=== PATIENT | female | born 1985 | race Caucasian/White ===

== ENCOUNTER → 2018-03-13 21:21 | Outpatient (CLI) | payer OTHER, SELFPAY ==
[2018-03-13 21:57] LABS: Thyroid Stim Hormone (TSH) 4.46 uIU/mL (0.358-3.74)
== END ==
PROVIDERS: Visit Provider Nurse Practitioner
DX: E03.9 Hypothyroidism, unspecified (principal)
CPT/HCPCS: 84443

== ENCOUNTER → 2018-03-15 15:18 | Outpatient (CLI) | payer OTHER, SELFPAY | PROVIDERS: Visit Provider Nurse Practitioner | DX: E03.9 Hypothyroidism, unspecified (principal) ==

== ENCOUNTER → 2018-04-04 21:12 | Outpatient (CLI) | payer OTHER, SELFPAY ==
[2018-04-04 21:19] LABS: Absolute Lymphocyte Count 3.67 X10^3/ul (0.83-4.51); Absolute Neutrophil Count 7.3 X10^3/uL (2.0-7.7); Basophil# 0.05 X10^3/uL; Basophil% 0.4 % (0-1); Eosinophil# 0.13 X10^3/uL; Eosinophils% 1.1 % (0-5); Hematocrit 43.3 % (37-47); Lymphocyte # 3.67 X10^3/ul (4.0); Lymphocyte % 30.1 % (19-41); Mean Corp Hgb Conc 34.6 g/gl (32-36); Mean Corpuscular Hgb 31.3 pg (27.0-32.0); Mean Corpuscular Volume 90.4 fL (81-99); Mean Platelet Vol. 10.7 fl (6.2-12.0); Monocyte% 8.2 % (0-10); Neutrophil # 7.34 X10^3/uL (2.7-7.7); POSITIVE COUNT NO; POSITIVE DIFFERENTIAL NO; POSITIVE MORPHOLOGY NO; Platelet Count 265 K/mm3 (150-450); RBC Distribution Width CV 12.4 % (11.6-14.6); Red Blood Count 4.79 M/mm3 (4.2-5.4); White Blood Count 12.2 K/mm3 (4.4-11.0)
[2018-04-04 21:25] LABS: Erythrocyte Sedimentation Rate 10 mm/hr (0-20)
[2018-04-04 21:38] LABS: ALB/GLOB Ratio 0.9 RATIO (0.9-2.4); AST(SGOT) 14 U/L (15-37); Alanine Aminotransfer ALT/SGPT 37 U/L (13-56); Alkaline Phosphatase 94 U/L (45-117); Anion Gap 8 (5-15); BUN 11 mg/dL (7-18); CPK Total, Creatine Kinase 77 U/L (26-192); Calcium,Total 9.1 mg/dL (8.5-10.1); Chloride 103 mmol/L (98-107); Creatinine, Serum 0.73 mg/dL (0.55-1.02); EST Glomerular Filtration Rate 98 mL/min (>60); Est Glom Filt Rate - Afr Amer 119 mL/min (>60); Globulin 4.3 g/dL (2.2-4.2); Glucose 87 mg/dL (74-106); Potassium 3.5 mmol/L (3.5-5.1); Protein, Total 8.3 g/dL (6.4-8.2); Rheumatoid Factor < 10.0 IU/mL (<15); Sodium Level 141 mmol/L (136-145); T4 Free Direct 1.03 ng/dL (0.76-1.46); Thyroid Stim Hormone (TSH) 2.39 uIU/mL (0.358-3.74); Vitamin B12 750 pg/mL (211-911)
[2018-04-08 16:17] LABS: Aldolase 4.7 U/L (3.3-10.3)
[2018-04-09 09:01] LABS: ANTINUCLEAR ANTIBODIES DIRECT Negative (Negative)
== END ==
PROVIDERS: Referring Provider Nurse Practitioner; Visit Provider Nurse Practitioner
DX: E03.9 Hypothyroidism, unspecified (principal); M62.81 Muscle weakness (generalized)
CPT/HCPCS: 80053; 82085; 82550; 82607; 84439; 84443; 85025; 85652; 86038; 86225; 86235; 86431

== ENCOUNTER → 2018-04-08 21:53 | Outpatient (CLI) | payer OTHER, SELFPAY ==
[2018-04-11 20:07] LABS: Lyme IgG P18 Ab Absent (.); Lyme IgG P23 Ab Absent (.); Lyme IgG P28 Ab Absent (.); Lyme IgG P30 Ab Absent (.); Lyme IgG P39 Ab Absent (.); Lyme IgG P41 Ab Present (.); Lyme IgG P45 Ab Absent (.); Lyme IgG P58 Ab Absent (.); Lyme IgG P66 Ab Absent (.); Lyme IgG P93 Ab Absent (.); Lyme IgM P23 Ab Absent (.); Lyme IgM P39 Ab Absent (.); Lyme IgM P41 Ab Absent (.)
[2018-04-12 08:35] LABS: CMV Antibody IgG < 0.60 U/mL (0.00-0.59); EBV Acute VCA IgM < 36.0 U/mL (0.0-35.9); EBV Early Antigen IgG 17.1 U/mL (0.0-8.9); Lyme IgG WB Interpretation Negative (.); Lyme IgM WB Interpretation Negative (.); PARVOVIRUS B19 IGG 4.2 index (0.0-0.8); PARVOVIRUS B19 IGM 0.4 index (0.0-0.8)
== END ==
PROVIDERS: Referring Provider Nurse Practitioner; Visit Provider Nurse Practitioner
DX: A69.20 Lyme disease, unspecified (principal); G70.00 Myasthenia gravis without (acute) exacerbation; B25.9 Cytomegaloviral disease, unspecified; C85.93 Non-Hodgkin lymphoma, unspecified, intra-abdominal lymph nodes
CPT/HCPCS: 86617; 86644; 86663; 86664; 86665; 86747

== ENCOUNTER → 2018-04-29 07:53 | Outpatient (CLI) | payer OTHER, SELFPAY | PROVIDERS: Referring Provider Nurse Practitioner; Visit Provider Nurse Practitioner | DX: E03.9 Hypothyroidism, unspecified (principal) | CPT/HCPCS: 84443 ==

== ENCOUNTER → 2018-05-10 20:53 | Outpatient (CLI) | payer OTHER, SELFPAY ==
[2018-05-10 17:38] VITALS: BMI 26.2
== END ==
PROVIDERS: Referring Provider Nurse Practitioner; Visit Provider Nurse Practitioner
DX: R33.9 Retention of urine, unspecified (principal)
CPT/HCPCS: 87086; 87088

== ENCOUNTER → 2018-06-11 07:28 | Outpatient (CLI) | payer OTHER, SELFPAY ==
[2018-05-29 09:52] VITALS: BMI 25.7
--- NOTE | 2018-06-11 07:32 | ECHOD_ITS ---
Reason For Study: ARRHYTHMIA Procedure This was a 2D Doppler, Color Flow transthoracic echocardiogram. Exam performed in department. Left Ventricle Normal LV size. Left ventricular systolic function is normal. The estimated ejection fraction is 60 %. No evidence for diastolic dysfunction. No regional wall motion abnormalities noted. Right Ventricle Normal RV size. Normal systolic function. Atria Normal left atrium. Normal right atrium. Mitral Valve Normal mitral valve. Mild (1+) eccentric mitral valve insufficiency. Tricuspid Valve Normal tricuspid valve. Mild tricuspid valve insufficiency. Aortic Valve Normal aortic valve. Trisinus/trileaflet aortic valve. Pulmonic Valve Normal pulmonic valve. Great Vessels Normal aortic root. The pulmonary artery is normal size. Normal inferior vena cava. Pericardium/Pleural No pericardial effusion. MMode/2D Measurements & Calculations LVIDd: 5.4 cm IVSd: 0.86 cm Ao root diam: 2.8 cm LVIDs: 3.8 cm LVPWd: 0.91 cm RVDd: 3.4 cm FS: 30.7 % LAV(MOD-bp): 44.3 ml LVAd ap4: 30.2 cm2 SV(MOD-sp4): 56.3 ml LAV(MOD-bp) Indexed: 23.0 ml/m2 EDV(MOD-sp4): 93.9 ml LAV(MOD-sp2): 35.1 ml EDV(sp4-el): 99.0 ml LAV(MOD-sp4): 52.5 ml LVAs ap4: 17.1 cm2 ESV(MOD-sp4): 37.6 ml ESV(sp4-el): 38.3 ml EF(MOD-sp4): 60.0 % EF(sp4-el): 61.3 % SV(sp4-el): 60.7 ml LA A4 area: 18.8 cm2 LA dimension(2D): 3.7 cm RA A4 area: 16.7 cm2 Time Measurements MV dec time: 0.31 sec Doppler Measurements & Calculations MV E max josué: 58.6 cm/sec Lat Peak E' Josué: 15.7 cm/sec Med Peak E' Josué: 11.2 cm/sec MV A max josué: 47.0 cm/sec E/E' lat: 3.7 E/E' med: 5.2 MV E/A: 1.2 Ao V2 max: 120.6 cm/sec LV V1 max: 89.3 cm/sec PA V2 max: 94.0 cm/sec Ao max P.8 mmHg LV V1 max P.2 mmHg PI end-d josué: 106.1 cm/sec TR max josué: 211.7 cm/sec TR max P.9 mmHg Interpretation Summary Normal LV size. Left ventricular systolic function is normal. The estimated ejection fraction is 60 %. No evidence for diastolic dysfunction. Mild tricuspid valve insufficiency. Ordering Physician: Gutierrez Cornejo Referring Physician: Gutierrez Cornejo Performed By: Vandana Kruger, PAULIECS, RVT
--- OUTSIDE RECORDS SUMMARY | 2018-09-12 12:33 | XMS RPT_ITS ---
:1985 Author Organization OHIP Support Name Relationship Address Phone LATA EDWARDS Unavailable [address] + [place] [address] [employer] Unavailable [address] + [place] [address] LATA EDWARDS Unavailable [address] + [place] [address] [employer] Unavailable [address] + [place] [address] LATA EDWARDS Unavailable [address] + [place] [address] [employer] Unavailable [address] + [place] [address] LATA EDWARDS Unavailable [address] + [place] [address] [employer] Unavailable [address] + [place] [address] JERRYRACHEL Unavailable . + ., . . UE Unavailable Unavailable Unavailable UE Unavailable Unavailable Unavailable UE Unavailable Unavailable Unavailable UE Unavailable Unavailable Unavailable UE Unavailable Unavailable Unavailable LATA LOOMIS Unavailable [address] [phone] [place] [address] UE Unavailable Unavailable Unavailable UE Unavailable Unavailable Unavailable Lisa Lerner Unavailable Unavailable + Care Team Providers Name Role Phone Gutierrez Cornejo Attending Unavailable Jass Cornejoril Referring Unavailable My Frank TRACK HELPER-C Primary Care Unavailable Gutierrez Cornejo Attending Unavailable Jass Cornejoril Referring Unavailable Frank, My TRACK HELPER-C Primary Care Unavailable Chantal, Gutierrez Consulting Unavailable Donna Martino Attending Unavailable Frank, My TRACK HELPER-C Referring Unavailable Chantal, Gutierrez Attending Unavailable Chantal, Gutierrez Referring Unavailable Frank, My TRACK HELPER-C Attending Unavailable Frank, My TRACK HELPER-C Referring Unavailable Frank, My TRACK HELPER-C Attending Unavailable Frank, My TRACK HELPER-C Referring Unavailable Frank, My TRACK HELPER-C Attending Unavailable Frank, My TRACK HELPER-C Referring Unavailable Frank, My TRACK HELPER-C Attending Unavailable Frank, My TRACK HELPER-C Referring Unavailable Frank, My TRACK HELPER-C Attending Unavailable Frank, My TRACK HELPER-C Referring Unavailable Frank, My TRACK HELPER-C Attending Unavailable Frank, My TRACK HELPER-C Referring Unavailable Chantal, [place] Attending Unavailable FARIBA GARDUNO Attending Unavailable IMER TARIQ Attending Unavailable SANGITA LERNER Referring Unavailable BK, TOSHIA Y Referring Unavailable Frank, My Attending Unavailable PROVIDER, UNKNOWN Referring Unavailable Frank, My Primary Care Unavailable SANGITA LERNER Attending Unavailable BK, TOSHIA Klever Attending Unavailable BK, TOSHIA Y Referring Unavailable BK, TOSHIA Y Referring Unavailable REED PRECIADO Attending Unavailable NOT SPECIFIED, Primary Care Unavailable PROBLEMS PROBLEMS DATE TYPE CONDITION / CODE ATTENDING STATUS SOURCE 06/13/2018 Active Other general NA Active [place] symptoms and signs / Clinic Other R68.89(ICD-10) [place] Repository 06/11/2018 Unknown R00.2 - Palpitations Chantal, Gutierrez Active [facility] / [facility]00.2(ICD-10) [facility] 05/29/2018 Unknown E78.5 - Chantal, [place] Active [facility] Hyperlipidemia, Community unspecified / Hospital E78.5(ICD-10) Repository 05/23/2018 Active Deficiency of other NA Active [facility] specified B group Clinic Main vitamins / [place] E53.8(ICD-10) Repository 05/23/2018 Active Other specified NA Active [facility] hypothyroidism / Clinic Main E03.8(ICD-10) [place] Repository 05/23/2018 Active Encounter for other NA Active [facility] specified special Clinic Main examinations / [place] Z01.89(ICD-10) Repository 05/15/2018 Active Nontoxic NA Active [facility] multinodular goiter Clinic Other / E04.2(ICD-10) [place] Repository 05/11/2018 Unknown R33.9 - Retention of Zac, Active [facility] urine, unspecified / My TRACK HELPER-C Community R33.9(ICD-10) Hospital Repository 04/30/2018 Unknown E03.9 - Frank, Active [facility] Hypothyroidism, My TRACK HELPER-C Community unspecified / Hospital E03.9(ICD-10) Repository 02/04/2010 Active Anxiety disorder, MCCDEX, Active [facility] unspecified / [facility] Clinic Other F41.9(ICD-10) [place] Repository 04/09/2018 Unknown A69.20 - Lyme Frank, Active [facility] disease, unspecified My TRACK HELPER-C Community / A69.20(ICD-10) Hospital Repository 04/09/2018 Unknown G70.00 - Myasthenia Frank, Active [facility] gravis without My TRACK HELPER-C Community (acute) exacerbation Hospital / G70.00(ICD-10) Repository 04/09/2018 Unknown B25.9 - Frank, Active [facility] Cytomegaloviral My TRACK HELPER-C Community disease, unspecified Hospital / B25.9(ICD-10) Repository 04/09/2018 Unknown C85.93 - Non-Hodgkin Frank, Active [facility] lymphoma, My TRACK HELPER-C Community unspecified, Hospital intra-abdominal Repository lymph nodes / C85.93(ICD-10) 04/05/2018 Active Paresthesia of skin STEER, FARIBA Active [facility] / R20.2(ICD-10) H Clinic Other [facility] Repository 04/05/2018 Unknown M62.81 - Muscle Frank, Active [facility] weakness My TRACK HELPER-C Community (generalized) / Hospital M62.81(ICD-10) Repository 04/03/2018 Active Weakness / NA Active [facility] R53.1(ICD-10) Clinic Other [facility] [place] Repository 03/31/2018 Final Diagnosis Panic disorder REED PRECIADO (Discharge) [episodic paroxysmal [facility] anxiety] without Hospital agoraphobia / Repository F41.0(ICD-10) 07/20/2017 Admitting Pain in left leg / Zac, Active [facility] Diagnosis M79.605(ICD-10) [facility] Repository PROCEDURES PROCEDURES No Procedure Records FoundRESULTS RESULTS OFFICE VISIT Observed: 07/11/2018 Status: F Source: [facility] 11:27 AM [facility] REPOSITORY [facility] [address] [place] [address] OFFICE VISIT Date of Service: 07/10/18 MR#: [id number] Acct: [id number] Name: RACHEL LOOMIS Rep #: [id number] : 1985 Provider: HÉCTOR Frank Age/Sex: 32/F Location: [facility] Status: Signed Intake Vital Signs07/10/18 Height 5 ft 11 in 07/10/18 Weight: 190 lb Intake Visit Reasons: F/U Accompanied by: Self Is patient in pain?: No Allergies acetaminophen [From Vicodin] Adverse Reaction (Intermediate, Verified 07/02/18 09:22) Nausea hydrocodone [From Vicodin] Adverse Reaction (Intermediate, Verified 07/02/18 09:22) Nausea Medications meclizine 12.5 mg tablet 12.5 mg PO TID PRN 02/05/18 [History Confirmed 07/02/18] multivitamin,ib-suid-kfnqazej tablet 1 tab PO QDAY 02/05/18 [History Confirmed 07/02/18] sumatriptan 50 mg tablet 50 mg PO ONCE PRN 02/05/18 [History Confirmed 07/02/18] omega-3 fatty acids 1,000 mg capsule 1,000 mg PO DAILY 05/29/18 [History Confirmed 07/02/18] norethindrone (contraceptive) 0.35 mg tablet 0.35 mg PO DAILY 07/02/18 [History Confirmed 07/02/18] lorazepam 0.5 mg tablet 0.5 mg PO BID PRN #60 tab 07/10/18 [Rx Confirmed 07/10/18] thyroid (pork) 81.25 mg tablet 81.25 mg PO DAILY #90 tab 07/10/18 [Rx Confirmed 07/10/18] PFSH Medical History Hyperlipidemia (Chronic) Hypothyroidism (acquired) (Chronic) Abnormal Pap smear of vagina (Acute) Anxiety disorder (Acute) DVT leg superficial thrombophlebitis (Acute) [place] teeth removed (Acute) Thyroid goiter (Resolved) Surgical History H/O partial thyroidectomy (Resolved) History of tonsillectomy (Resolved) Family History Other Colon cancer Diabetes Fatty liver Myocardial infarction Ovarian cancer Prostate cancer Uterine cancer Social History Smoking Status: Never smoker alcohol intake: current alcohol intake frequency: holidays/special occasions only substance use type: does not use caffeine: No HPI HPI (General) HPI HPI: RACHEL LOOMIS, is a 32 F who presents to the office today for medication refills ROS Const Constitutional: No anorexia, body ache, chills, excessive sweating, fatigue, fever(s), frequent falls, headache(s), decreased energy, malaise, night sweats, snoring, weakness, weight change, sleep problems, abnormal sleep pattern, change in appetite or other Eyes Eyes: No blurry vision, change in vision, double vision, discharge, dry eyes, bulging eyes, floaters, visual disturbances, eye pain, light sensitivity, spots in vision, tunnel vision or other ENT ENT: No headache(s), abnormal hearing, ear pain, ear discharge, ear pressure, hearing loss, tinnitus, dizziness/vertigo, balance problems, nosebleed/epistaxis, nasal congestion, nasal obstruction, nose pain, sinus pressure, sinus pain, nasal discharge, post nasal drip, facial pain, dental pain, dry mouth, difficulty swallowing, bad breath, hoarseness, lip swelling, mouth lesions, mouth pain, neck pain, sore throat, tongue swelling, throat swelling or other Resp Respiratory: No snoring, cough, change in phlegm color, chest congestion, excessive phlegm production, hemoptysis, pain on inspiration, shortness of breath, pain with cough, stridor, wheezing or other Cardio Cardiology: No excessive sweating, chest pain at rest, chest pain with exertion, leg pain with exertion, shortness of breath, dyspnea on exertion, generalized swelling, irregular heart rhythm, lightheadedness, orthopnea, radiating jaw, neck or arm pain, fast heart rate, slow heart rate, palpitations or other Gastro GI: No other, No Difficulty Swallowing, No abdominal pain, No belching, No bloating, No change in bowel habits, No change in stool character, No coffee ground emesis, No constipation, No cramping, No diarrhea, No heartburn, No feeling full early, No excessive flatus, No incontinent of stools, No Vomiting blood/hematemesis, No Blood in stool, No loose stools, No Black,tarry stools, No nausea/dyspepsia, No pain with swallowing, No vomiting, No hemorrhoids, No rectal pain Genitourinary: No urinary frequency, difficulty urinating, burning urination, painful urination, urinary urgency or blood in urine Musc Musculoskeletal: No neck pain, abnormal walking, joint pain, back pain, deformity, joint swelling, limited range of motion, loss of height, muscle cramps, muscle weakness, decreased muscle mass, body aches, numbness, radiating pain into limb, stiffness, tingling or other Skin Skin: No acne, hair loss, change in hair, nail changes, boil, change in skin color, dry skin, redness, excessive hair growth, yellowing of the skin, lesions, itching, rash, skin pain, skin ulcer, sores, skin swelling, wounds or other Breast Breast: No other Neuro Neurology: No frequent falls, headache(s), weakness, visual disturbances, abnormal hearing, abnormal walking, numbness, tingling, abnormal movements, abnormal speech, behavioral changes, confusion, unsteady gait/balance, dizziness, lack of coordination, loss of vision, memory loss, restless legs, fainting, tremor(s) or other Psych Psychiatric: No abnormal sleep pattern, No change in appetite, No behavioral changes, No confusion, No memory loss, No lack of enjoyment, No anxiety, No depression, No difficulty concentrating, No hopelessness, No irritability, No mood swings, No panic attacks, No paranoia, No Thoughts of harming yourself/Others, No hallucinations, No other Endo Endo: No excessive sweating, No fatigue, No other Aller/Imm Allergy/Immunologic: No lip swelling, tongue swelling, throat swelling, wheezing or itchy eyes Exam Const Constitutional: Yes cooperative, Yes healthy appearing Orientation: Yes alert, awake and oriented x3 [facility] Head: Yes normocephalic Ear: Yes hearing grossly normal bilaterally Neck Neck: normal visual inspection Thyroid: thyroid normal Eyes General: Yes appearance normal, both eyes and all related structures Chest Chest palpation AND inspection: Yes normal inspection of the chest Resp Effort AND Inspection: No stridor Auscultation: Yes clear to auscultation bilaterally Cardio Palpitation: Yes normal PMI Rate: Yes regular rate Rhythm: Yes regular rhythm GI Inspection: Yes normal to inspection Auscultation: Yes normal bowel sounds Rectal Exam: No hemorrhoids Musc Cervical Spine: Yes cervical ROM normal Thoracic/Lumbar Spine: Yes thoracic and lumbar spine normal to inspection Skin General: no rashes or lesions noted Lesions: Yes no lesions Extrem General: Yes normal to inspection Neuro General: Yes alert and oriented x3 Motor: No weakness Psych Appearance: Positive grossly normal Mood: Positive congruent mood Affect: Positive normal affect Assessment AND Plan Problems 1. Anxiety disorder, unspecified type F41.9 2. Hypothyroidism (acquired) E03.9 Patient Instructions TAke the medications as prescribed follow up as needed 3 months recheck thyroid Medications New: Refilled: Discontinued: thyroid (pork) ([place] Thyroid) 60 +15 = 75 MG PO QD Dis60 mg PO DAILY 90 tabs 3RF continued Reason: Order Changed Coding Level of Care Code Off vis,est,level 3 Diagnoses Anxiety disorder, unspecified type F41.9 Anxiety disorder type: unspecified anxiety disorder Hypothyroidism (acquired) E03.9 07/11/18 1127 <Electronically signed by My MCKINLEY> Date My MCKINLEY CC: CARDIOLOGY VISIT Observed: 07/09/2018 Status: F Source: [place] REPORT 10:08 AM [facility] [place] [facility] [place] [address] OFFICE VISIT Date of Service: 07/02/18 MR#: [id number] Acct: [id number] Name: RACHEL LOOMIS Rep #: [id number] : 1985 Provider: Donna Martino Age/Sex: 32/F Location: [facility] Status: Signed HPI HPI Details: RACHEL LOOMIS, is a 32 F who presents to the office today for presents here today for a cardiovascular follow-up. She recently established with us for concerns over palpitations. Patient states that since her last office visit she has had a decrease in her palpitations. She did have a 24-hour Holter monitor which did demonstrate less than 1% ventricular ectopic beats in which patient was symptomatic with. He does not have any chest discomfort. She does not have any worsening shortness of breath. She does not have any lightheadedness or dizziness. She does not have any lower extremity edema. 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 Accompanied by: None Is patient in pain?: No Allergies acetaminophen [From Vicodin] Adverse Reaction (Intermediate, Verified 07/02/18 09:22) Nausea hydrocodone [From Vicodin] Adverse Reaction (Intermediate, Verified 07/02/18 09:22) Nausea Medications lorazepam 0.5 mg tablet 0.5 mg PO BID PRN #60 tab 02/05/18 [Rx Confirmed 07/02/18] meclizine 12.5 mg tablet 12.5 mg PO TID PRN 02/05/18 [History Confirmed 07/02/18] multivitamin,qm-ckwm-vftzrsdv tablet 1 tab PO QDAY 02/05/18 [History Confirmed 07/02/18] sumatriptan 50 mg tablet 50 mg PO ONCE PRN 02/05/18 [History Confirmed 07/02/18] omega-3 fatty acids 1,000 mg capsule 1,000 mg PO DAILY 05/29/18 [History Confirmed 07/02/18] thyroid (pork) 15 mg tablet 15 mg PO DAILY #90 tab 06/28/18 [Rx Confirmed 07/02/18] thyroid (pork) 60 mg tablet 60 mg PO DAILY #90 tab 06/28/18 [Rx Confirmed 07/02/18] norethindrone (contraceptive) 0.35 mg tablet 0.35 mg PO DAILY 07/02/18 [History Confirmed 07/02/18] Ejection fraction %: 60 to 64 PFSH Medical History Hyperlipidemia (Chronic) Hypothyroidism (acquired) (Chronic) Abnormal Pap smear of vagina (Acute) Anxiety disorder (Acute) DVT leg superficial thrombophlebitis (Acute) [place] teeth removed (Acute) Thyroid goiter (Resolved) Surgical History H/O partial thyroidectomy (Resolved) History of tonsillectomy (Resolved) Family History Other Colon cancer Diabetes Fatty liver Myocardial infarction Ovarian cancer Prostate cancer Uterine cancer Social History Smoking Status: Never smoker alcohol intake: current alcohol intake frequency: holidays/special occasions only substance use type: does not use caffeine: No ROS Const Const: Negative for weakness, fatigue, fever(s) or headache(s) Eyes Eyes: Negative for blind spots, loss of peripheral vision or transient loss of vision ENT ENT: Negative for headache(s), dizziness, tinnitus or Nosebleed/epistaxis Cardio Chest Pain: No Palpitations: No Edema: None Muscle aches with walking: None Resp Respiratory: Negative for SOB with activity, SOB at rest, SOB orthopnea\SOB lying down or Cough GI GI: Negative nausea, vomiting, heartburn or vomiting blood/hematemesis : Negative for hematuria Musc Musc: Negative for muscle aches/ myalgia Neuro Neuro: Negative for weakness, headache(s), dizziness, near syncope, syncope, lightheadedness or orthostatic symptoms Nickolas Hematologic/Lymphatic: Negative for easy bleeding Endo Endo: Negative for fatigue Cardiology Exam Const Appearance: cooperative, no acute distress and well developed Orientation: alert, awake and oriented x3 Head Head: normocephalic and atraumatic Mouth: moist mucous membranes Eyes General: appearance normal, both eyes and all related structures Conjunctivae: conjunctivae normal Pupils: PERRL EOM: EOM intact bilaterally Neck Neck: normal visual inspection, no lymphadenopathy and no JVD Carotids: Negative bruit Neck Mass: Negative Neck mass Chest Chest inspection: normal inspection of the chest and symmetric chest movement Auscultation: Bilateral: Clear to Auscultation Cardio Palpation: normal PMI Rate: regular rate Rhythm: regular rhythm Heart sounds: S1 normal and S2 normal; negative rub, gallop or murmur GI GI: normal to inspection, soft, no hepatosplenomegaly and bowel sounds present; negative tender Neuro General: alert, awake, oriented x3, CN's II-XI intact bilaterally and moves all extremities Extremities Pulses: Normal: Right Posterior Tibial Pulse, Left Posterior Tibial Pulse, Right Radial Pulse, Left Radial Pulse Lower Extremity Edema: None: Bilateral Psych Psychological: normal affect Assessment AND Plan Problems 1. Intermittent palpitations R00.2 Plan - VINOD Lu Reviewed echocardiogram and Holter monitor with patient in detail. For now we will continue to monitor. Do not feel that patient needs any additional medication to control these. She will let us know if her symptoms worsen. She will follow-up with us on a as needed basis. Plan Detail Additional Comments - VINOD Lu The above patient was discussed with Dr. Cornejo he agrees with plan of care. Thank you for allowing us to participate in patient's plan of care, if you have any questions please do not hesitate to call. This note was generated using a voice recognition system and there may be incorrect words, spelling or punctuation errors that were not noted when reviewing the office note prior to saving. Follow Up 07/02/18 (PRN) Coding Level of Care Code Off vis,est,level 3 Diagnoses Intermittent palpitations R00.2 Coding Level of Care Code Off vis,est,level 3 Diagnoses Intermittent palpitations R00.2 Supplemental Info Supplemental Information Echocardiogram in 2018 demonstrated Normal LV size. Left ventricular systolic function is normal. The estimated ejection fraction is 60 %. No evidence for diastolic dysfunction. Mild tricuspid valve insufficiency. Diagnostics Echocardiogram 06/11/18 07/03/18 1412 <Electronically signed by Donna Martino PA> Date Donna BROCK 07/09/18 1008<Electronically signed by Gutierrez Cornejo MD> Cosigner Signature: Date (if applicable) Gutierrez Cornejo MD CC: HÉCTOR Frank MRI BRAIN WO IVCON Observed: 06/13/2018 Status: F Source: [place] 8:02 AM CLINIC OTHER CAMPUS REPOSITORY * * *Final Report* * * DATE OF EXAM: Jun 13 2018 8:02AM [facility] 0294 - MRI BRAIN WO IVCON / PROCEDURE REASON: R68.89-Other general symptoms and signs * * * * Physician Interpretation * * * * EXAMINATION: MRI BRAIN WO IVCON CLINICAL HISTORY: Numbness. TECHNIQUE: Routine noncontrast MRI protocol including diffusion images. MQ: [id number] COMPARISON: CT brain performed 04/03/2018. RESULT: Acute Change: There is no evidence of restricted diffusion to suggest an acute infarct. Hemorrhage: No evidence of prior parenchymal hemorrhage on the gradient echo images. Mass Lesion/ Mass Effect: No evidence of an intracranial mass or extra-axial fluid collection. No significant mass effect. Chronic Change: The white matter is within normal limits of signal intensity for age. Parenchyma: No significant volume loss for age. The brain parenchyma is otherwise within normal limits of signal intensity and morphology. Ventricles: Normal caliber and morphology. Skull Base: Hypothalamic and pituitary region are grossly normal. Craniocervical junction is normal. No significant marrow replacement process. Vasculature: Major intracranial arterial structures, and dural venous sinuses show typical flow void, suggesting patency by spin echo criteria. Other: Minimal mucosal thickening present within the imaged paranasal sinuses. Skull base and the imaged extracranial soft tissues are normal. IMPRESSION: No acute intracranial process. Mild paranasal sinus inflammatory disease. Otherwise unremarkable examination. Orbitread Operator: SILVANO Transcribe Date/Time: Jun 13 2018 8:41A Dictated by : JERARDO RODRIGUEZ MD This examination was interpreted and the report reviewed and electronically signed by: JERARDO RODRIGUEZ MD on Jun 13 2018 8:44AM EST [id number] OFFICE VISIT Observed: 06/11/2018 Status: F Source: [place] 8:18 PM [facility] [place] [facility] [address] [place] [address] OFFICE VISIT Date of Service: 06/11/18 MR#: [id number] Acct: [id number] Name: RACHEL LOOMIS Rep #: [id number] : 1985 Provider: HÉCTOR Frank Age/Sex: 32/F Location: [facility] Status: Signed Intake Vital Signs06/11/18 Height 5 ft 11 in 06/11/18 Weight: 186 lb Intake Visit Reasons: F/U AND BW Allergies acetaminophen [From Vicodin] Adverse Reaction (Intermediate, Verified 05/29/18 09:53) Nausea hydrocodone [From Vicodin] Adverse Reaction (Intermediate, Verified 05/29/18 09:53) Nausea Medications lorazepam 0.5 mg tablet 0.5 mg PO BID PRN #60 tab 02/05/18 [Rx Confirmed 05/29/18] meclizine 12.5 mg tablet 12.5 mg PO TID PRN 02/05/18 [History Confirmed 05/29/18] multivitamin,un-kcvt-qrlhqaep tablet 1 tab PO QDAY 02/05/18 [History Confirmed 05/29/18] sumatriptan 50 mg tablet 50 mg PO ONCE PRN 02/05/18 [History Confirmed 05/29/18] vit Bcplx C-vit E-folic acid-roberth-Zn 35 unit-5.5 mg-70 mcg- 20 mg tablet tab PO 02/05/18 [History Confirmed 05/29/18] thyroid (pork) 60 mg tablet 60 mg PO DAILY #90 tab 05/01/18 [Rx Confirmed 05/29/18] thyroid (pork) 15 mg tablet 15 mg PO DAILY #90 tab 05/15/18 [Rx Confirmed 05/29/18] omega-3 fatty acids 1,000 mg capsule 1,000 mg PO DAILY 05/29/18 [History Confirmed 05/29/18] PFSH Medical History Hyperlipidemia (Chronic) Hypothyroidism (acquired) (Chronic) Abnormal Pap smear of vagina (Acute) Anxiety disorder (Acute) DVT leg superficial thrombophlebitis (Acute) [place] teeth removed (Acute) Thyroid goiter (Resolved) Surgical History History of tonsillectomy (Acute) H/O partial thyroidectomy (Resolved) Family History Other Colon cancer Diabetes Fatty liver Myocardial infarction Ovarian cancer Prostate cancer Uterine cancer Social History Smoking Status: Never smoker alcohol intake: current alcohol intake frequency: holidays/special occasions only substance use type: does not use HPI HPI (General) HPI HPI: RACHEL LOOMIS, is a 32 F who presents to the office today for going over her cholesterol labs from work the LDL were high and she wants to know how to get down . 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 Seen by the neurologist and she is ordering a EMG and an MRI. She has the EMG and the MRI this week. Now she is obsessed with her forearms going numb and her wrists fell funny . suggested it is her posture and demonstrated some neck exercises to do Will refer to [facility] again for her back and neck . ROS Musc Musculoskeletal: Positive for numbness (forearms) and tingling Neuro Neurology: Positive for numbness (forearms) and tingling Exam Const Constitutional: Yes cooperative, Yes healthy appearing Orientation: Yes alert and awake Neck Neck: normal visual inspection Thyroid: thyroid normal Eyes General: Yes appearance normal, both eyes and all related structures Resp Effort AND Inspection: Yes normal respiratory effort Auscultation: Yes clear to auscultation bilaterally Cardio Palpitation: Yes normal PMI Rate: Yes regular rate Rhythm: Yes regular rhythm GI Inspection: Yes normal to inspection Auscultation: Yes normal bowel sounds Musc Cervical Spine: Yes cervical ROM normal Thoracic/Lumbar Spine: Yes thoracic and lumbar spine normal to inspection Extrem General: Yes normal to inspection Neuro General: Yes alert Psych Appearance: Positive grossly normal Mood: Positive congruent mood Affect: Positive normal affect Assessment AND Plan Problems 1. Numbness and tingling in both hands R20.0; R20.2 2. High cholesterol E78.00 Patient Instructions increase her fish oil to 3 -4 a day STOP the processed food such as mac and cheese, eating cheese. increase salads and meat with veg Will refer to HOPS again Coding Level of Care Code Off vis,est,level 3 Diagnoses Numbness and tingling in both hands R20.0; R20.2 High cholesterol E78.00 06/11/182017 <Electronically signed by My MCKINLEY> Date My MCKINLEY CC: ECHOCARDIOGRAM COMPLETE Observed: 06/11/2018 Status: F Source: [place] 10:45 AM [facility] [place] [facility] Cardiovascular Services [address] [place] [id number] Echo Complete 06/11/18 0751 MR#: [id number] Acct: [id number] Name: RACHEL LOOMIS Rep #: [id number] : 1985 32 From: Gutierrez Cornejo MD Attending Dr: Gutierrez Cornejo MD Status: REG CLI Ordering Dr: Gutierrez Cornejo MD Date: 06/11/18 Location: [facility] Sex: F C Admitted: Reason For Study: ARRHYTHMIA Procedure This was a 2D Doppler, Color Flow transthoracic echocardiogram. Exam performed in department. Left Ventricle Normal LV size. Left ventricular systolic function is normal. The estimated ejection fraction is 60 %. No evidence for diastolic dysfunction. No regional wall motion abnormalities noted. Right Ventricle Normal RV size. Normal systolic function. Atria Normal left atrium. Normal right atrium. Mitral Valve Normal mitral valve. Mild (1+) eccentric mitral valve insufficiency. Tricuspid Valve Normal tricuspid valve. Mild tricuspid valve insufficiency. Aortic Valve Normal aortic valve. Trisinus/trileaflet aortic valve. Pulmonic Valve Normal pulmonic valve. Great Vessels Normal aortic root. The pulmonary artery is normal size. Normal inferior vena cava. Pericardium/Pleural No pericardial effusion. MMode/2D Measurements AND Calculations LVIDd: 5.4 cm IVSd: 0.86 cm Ao root diam: 2.8 cm LVIDs: 3.8 cm LVPWd: 0.91 cm RVDd: 3.4 cm FS: 30.7 % LAV(MOD-bp): 44.3 ml LVAd ap4: 30.2 cm2 SV(MOD-sp4): 56.3 ml LAV(MOD-bp) Indexed: 23.0 ml/m2 EDV(MOD-sp4): 93.9 ml LAV(MOD-sp2): 35.1 ml EDV(sp4-el): 99.0 ml LAV(MOD-sp4): 52.5 ml LVAs ap4: 17.1 cm2 ESV(MOD-sp4): 37.6 ml ESV(sp4-el): 38.3 ml EF(MOD-sp4): 60.0 % EF(sp4-el): 61.3 % SV(sp4-el): 60.7 ml LA A4 area: 18.8 cm2 LA dimension(2D): 3.7 cm RA A4 area: 16.7 cm2 Time Measurements MV dec time: 0.31 sec Doppler Measurements AND Calculations MV E max samina: 58.6 cm/sec Lat Peak E' Samina: 15.7 cm/sec Med Peak E' Samina: 11.2 cm/sec MV A max samina: 47.0 cm/sec E/E' lat: 3.7 E/E' med: 5.2 MV E/A: 1.2 Ao V2 max: 120.6 cm/sec LV V1 max: 89.3 cm/sec PA V2 max: 94.0 cm/sec Ao max P.8 mmHg LV V1 max P.2 mmHg PI end-d samina: 106.1 cm/sec TR max samina: 211.7 cm/sec TR max P.9 mmHg Interpretation Summary Normal LV size. Left ventricular systolic function is normal. The estimated ejection fraction is 60 %. No evidence for diastolic dysfunction. Mild tricuspid valve insufficiency. Ordering Physician: Gutierrez Cornejo Referring Physician: Gutierrez Cornejo Performed By: Vandana Kruger, CHANDLER, RVT 06/11/18 1044 Date Gutierrez Cornejo MD CC: HÉCTOR Frank; Gutierrez Cornejo MD Date Dictated: 06/11/18 0751 Date Transcribed: 06/11/181043 Orbitread Operator: Signed CARDIOLOGY VISIT Observed: 05/29/2018 Status: F Source: [place] REPORT 10:30 AM [facility] [place] [facility] [address] [place] [address]. [address] [place] [address] OFFICE VISIT Date of Service: 05/29/18 MR#: [id number] Acct: [id number] Name: RACHEL LOOMIS Rep #: [id number] : 1985 Provider: Gutierrez Cornejo MD Age/Sex: 32/F Location[facility] Status: Signed HPI HPI Chief Complaint: initial visit Details: RACHEL LOOMIS, is a 32 F who presents to the office today for an initial visit. She is a lady with a history of thyroidectomy who presents for an evaluation regarding palpitations. She has had no dizziness or diaphoresis no near syncope or syncope. She says that she has these episodes mostly on a daily basis. She has also had occasional chest discomfort which is dull and quick. She has had no radiation of the above. She was recently placed on a low-dose beta-siddharth. She has had no previous diagnostic testing. An EKG that was done on 05/10/2018 demonstrated normal sinus rhythm with rate of 86 bpm. Her physical exam today demonstrates clear lung sanchez regular rate and rhythm no pedal edema and normal blood pressure. Intake Vital Signs05/29/18 Height 5 ft 11 in Intake Visit Reasons: PCP ref'd for palps Allergies acetaminophen [From Vicodin] Adverse Reaction (Intermediate, Verified 05/29/18 09:53) Nausea hydrocodone [From Vicodin] Adverse Reaction (Intermediate, Verified 05/29/18 09:53) Nausea Medications lorazepam 0.5 mg tablet 0.5 mg PO BID PRN #60 tab 02/05/18 [Rx Confirmed 05/29/18] meclizine 12.5 mg tablet 12.5 mg PO TID PRN 02/05/18 [History Confirmed 05/29/18] multivitamin,xi-pecy-hdqyinxu tablet 1 tab PO QDAY 02/05/18 [History Confirmed 05/29/18] sumatriptan 50 mg tablet 50 mg PO ONCE PRN 02/05/18 [History Confirmed 05/29/18] vit Bcplx C-vit E-folic acid-roberth-Zn 35 unit-5.5 mg-70 mcg- 20 mg tablet tab PO 02/05/18 [History Confirmed 05/29/18] thyroid (pork) 60 mg tablet 60 mg PO DAILY #90 tab 05/01/18 [Rx Confirmed 05/29/18] thyroid (pork) 15 mg tablet 15 mg PO DAILY #90 tab 05/15/18 [Rx Confirmed 05/29/18] omega-3 fatty acids 1,000 mg capsule 1,000 mg PO DAILY 05/29/18 [History Confirmed 05/29/18] PFSH Medical History Hyperlipidemia (Chronic) Hypothyroidism (acquired) (Chronic) Thyroid goiter (Resolved) Abnormal Pap smear of vagina (Acute) Anxiety disorder (Acute) DVT leg superficial thrombophlebitis (Acute) [place] teeth removed (Acute) Surgical History H/O partial thyroidectomy (Resolved) History of tonsillectomy (Acute) Family History Other Colon cancer Diabetes Fatty liver Myocardial infarction Ovarian cancer Prostate cancer Uterine cancer Social History Smoking Status: Never smoker alcohol intake: current alcohol intake frequency: holidays/special occasions only substance use type: does not use ROS Const Const: Positive for fatigue, weakness and other (Started stenolol, HR < 60 in the morning); negative for difficulty sleeping, frequent falls, excessive sweating or headache(s) Eyes Eyes: Negative for loss of peripheral vision, transient loss of vision, blurry vision, tunnel vision or double vision ENT ENT: Negative for headache(s), dizziness, Nosebleed/epistaxis or balance problems Cardio Chest Pain: Yes Location: left chest, right chest Duration: brief Palpitations: Yes (New onset) feels like its: pounding, skipping Edema: None Muscle aches with walking: None Additional Details: C/O episodes of weakness and palpitations along with facial tingling in hands and neck. Feels like she is going to pass out. Resp Respiratory: Negative for SOB with activity, SOB at rest, SOB orthopnea\SOB lying down, paroxysmal nocturnal dyspnea or Cough GI GI: Negative nausea, heartburn, black,tarry stools or vomiting : Negative for hematuria Musc Musc: Positive for muscle aches/ myalgia (BUE from elbows to hand); negative for balance problems, muscle weakness or joint pain Skin Skin: Negative non-healing lesions, unusual bruising or rash Neuro Neuro: Positive for weakness; negative for frequent falls, headache(s), blurry vision, double vision, dizziness, lightheadedness, orthostatic symptoms, near syncope, syncope or lack of coordination Nickolas Hematologic/Lymphatic: Negative for easy bruising or easy bleeding Endo Endo: Positive for fatigue; negative for excessive sweating or increased thirst/drinking Psych Psych: Positive for anxiety (Increase stress r/t custody of her sisters children); negative for depression Allergy Allergy/Immunology: Negative for hives, Negative for rash Cardiology Exam Const Appearance: cooperative, healthy appearing, well developed, well groomed and no acute distress Nutritional Appearance: well nourished and average body habitus Orientation: alert, awake and oriented x3 Head Head: normal to inspection, normocephalic and atraumatic Ears: hearing grossly normal bilaterally and external ears normal Nose: external nose normal, nasal mucous membranes and turbinates normal, nares normal, septum normal, no nasal discharge Face and Sinus: face symmetric Mouth: oral mucosae normal, tongue normal, oropharynx normal and moist mucous membranes Teeth and gingiva: dentition normal Throat: posterior oropharynx normal, tonsils normal and uvula midline Eyes General: appearance normal, both eyes and all related structures Eyelids: eyelids normal Conjunctivae: conjunctivae normal Pupils: PERRL, normal by confrontation and accommodation normal EOM: EOM intact bilaterally Neck Neck: normal visual inspection, trachea midline and no JVD JVD: +5 Carotids: normal carotid upstroke and bounding pulses Chest Chest inspection: normal inspection of the chest, symmetric chest movement and normal respiratory effort Auscultation: Bilateral: Clear to Auscultation Cardio Palpation: normal PMI Rate: regular rate Rhythm: regular rhythm Heart sounds: S1 normal, S2 normal and normal, physiologic split S2; negative rub, gallop or murmur GI GI: normal to inspection, soft, no hepatosplenomegaly and bowel sounds present Neuro General: alert, awake, oriented x3, no focal sensory deficit, gait normal and moves all extremities Skin Skin: no rashes or lesions noted Extremities Pulses: Normal: Right Femoral Pulse, Left Femoral Pulse, Right Dorsalis Pedis Pulse, Left Dorsalis Pedis Pulse, Right Posterior Tibial Pulse, Left Posterior Tibial Pulse, Right Radial Pulse, Left Radial Pulse Lower Extremity Edema: None: Bilateral Musculoskel Musculoskeletal: No joint tenderness Psych Psychological: normal affect Assessment AND Plan 1. Intermittent palpitations R00.2 Plan She does have a history of intermittent palpitations. My recommendation at this time is to obtain an echocardiogram to assess her left ventricular function as well as place a 24-hour Holter monitor. Depending on the findings further recommendations will be made. Her TSH and free T4 are noted to be within normal limits. I would recommend discontinuing the atenolol at this particular time. Orders Orders: 2. Hyperlipidemia E78.5 Plan She does have a history of hyperlipidemia. Her most recent lipid profile demonstrated total cholesterol 248, HDL of 55, LDL 157. Her triglycerides were also elevated at 203. I would recommend dietary modification with reduction in carbohydrates and sugars to see whether we can improve the above. 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) Coding Level of Care Code Off vis,new,level 4 Diagnoses Intermittent palpitations R00.2 Hyperlipidemia E78.5 Coding Level of Care Code Off vis,new,level 4 Diagnoses Intermittent palpitations R00.2 Hyperlipidemia E78.5 05/29/18 1030 <Electronically signed by Gutierrez Cornejo MD> Date Gutierrez Spencer Signature: Date (if applicable) CC: HÉCTOR Frank VITAMIN D 25 HYDROXY Collected: 05/23/2018 Status: F Source: [place] 10:40 AM [facility] REPOSITORY TYPE CODE TESTS RESULT OUT OF REFERENCE UNITS RANGE LAB VITD 31.0-80.0 ng/mL Low Vitamin D 25 19.7 Hydroxy Result Comment: Classification of 25 [place] Vitamin D status: Insufficiency/Moderate Deficiency: < or = 30 ng/mL Sufficiency/Optimal Levels: 31 to 80 ng/mL Toxicity: > 100 ng/mL Test performed by chemiluminescent immunoassay. Performed By: #### VITD #### [place] [id number] PROGRESS Observed: 05/23/2018 Status: COMPLETED Source: [place] 9:12 AM [facility] REPOSITORY HNO ID: [id number] Author: Toshia Bourgeois Service: (none) Author Type: Physician Type: Progress Notes Filed: 05/26/2018 6:29 PM Note Text: NEUROLOGY CONSULT NOTE Please leave note in paper medical record. Previous records (physician notes, laboratory reports, and radiology reports) and imaging studies were reviewed and summarized as below. My recommendations will be communicated back to the patient's consulting physician(s) by way of shared medical record. REFERRING PHYSICIAN: ER Staff [place] [id number] [facility] [id number] Accompanied by: Self ASSESSMENT: 32 year old female who is hypothyroid following R thyroidectomy in 2013 for goiter ,she is on thyroxine ,she has depression and anxiety She is complaining of numbness and pain in the arms and legs face and tongue intermittently ,not every day Can last hours ,can happen in any position ,recently associated with headache ,which is also more frequent than before. She also had headache episodes with migrainous features in the summer and was taking small dose of imitrex with partial headache relief She says at that time didn't have the numbness which she thinks started a month ago Her Neurological exam today is non focal Migraine headache,can be associated with numbness and other symptoms As migraine is a diagnosis of exclusion then work up for other causes will be done Migraine headache with numbness PLAN: Migraine treatment acute and preventive medication Work up for other causes of numbness ---> work up for other causes of numbness and weakness which is episodic Office Visit on 05/23/18 -MRI BRAIN WO IVCON -VITAMIN D 25 HYDROXY -CONSULT TO PHYSICAL THERAPY -EMG(NEURO/NI) Patient's request for medication is as follows: No medications selected for refill. Prescription(s) as above. Please process accordingly. Toshia Bourgeois MD ---> Follow-up: 1-2 months, Tests results will be discussed in the follow up appointment Medications side effects explained and discussed with the patient . CC: numbness HxCC: 32 year old female , who presents for evaluation of multisystem and multiple complaints and previously had multiple visits to the ER For these symptoms A year ago she had leg pain and was given steroids that made the pain better But then she had numbness arms and legs together but tingling in the shoulder in the face Doesn't know how frequent Intermittent can feel it numbness in her tongue and neck Has been getting headache intermittent , Aunt has migriane She was given migraine medicine because of headache imitrex helped her headache but always recurrent partial releif of headache . 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 Two weeks ago she started having headache spots with photophobia phonophobia No nausea tylenol and went to lie down closing eyes left frontotemporal or mainly frontal with tenderness To touch ,headache can last hours The numbness is also intermittent Numbness free days 4 out of 7 with no numbness headaches every other day Subjective weakness in all four limbs Jelly feeling and vibration in the legs feels that her legs are cold and tight that she has been wearing socks No umbness in the toes not in the feet And since then She went to several ER Numbness all over started in the legs then went to the arms then face in her tongue . She has been complaining of leg pain since 2016 Back pain intermittently for which she has been treated but didn't go to therapy Intermittent Sitting for long time Neck pain too which is more frequent specially when sleepoing Neck pain with headache and without headache No falls No imbalnce Used to have dizziness years ago Meclizine helped On further neurologic questioning, the patient denies .. No new blurry, double or loss of vision. No new loss of hearing, vertigo, or tinnitus. No dysarthria, dysphonia or dysphagia. No new imbalance, frequent falls or incoordination. No bowel or bladder incontinence. No saddle anesthesia. No muscular atrophy or fasciculations. RECENT LABS: WBC (k/uL) Date Value 04/03/2018 11.56 (H) RBC (m/uL) Date Value 04/03/2018 4.52 Hemoglobin (g/dL) Date Value 04/03/2018 14.3 Hematocrit (%) Date Value 04/03/2018 40.4 MCV (fL) Date Value 04/03/2018 89.4 MCH (pG) Date Value 04/03/2018 31.6 MCHC (g/dL) Date Value 04/03/2018 35.4 RDW-CV (%) Date Value 04/03/2018 12.1 Platelet Count (k/uL) Date Value 04/03/2018 240 MPV (fL) Date Value 04/03/2018 10.8 Last BMP (Basic Metabolic Panel) Lab Results Component Value Date NA 138 04/05/2018 Lab Results Component Value Date K 3.5 04/05/2018 Lab Results Component Value Date CHLOR 104 04/05/2018 Lab Results Component Value Date CO2 30 04/05/2018 Lab Results Component Value Date BUN 9 04/05/2018 Lab Results Component Value Date CREAT 0.67 04/05/2018 Lab Results Component Value Date GLUC 99 04/05/2018 Lab Results Component Value Date ANION 7 04/05/2018 Lab Results Component Value Date CA 8.9 04/05/2018 TSH Date Value Ref Range Status 04/03/2018 1.150 0.400 - 5.500 uU/mL Final Comment: If the patient is , TSH reference range varies by gestational period: First Trimester 0.100-2.500 uU/mL Second Trimester 0.200-3.000 uU/mL Third Trimester 0.300-3.000 uU/mL References: 1. Bacon, Dejan M, Rickie EK, et al. Management of Thyroid Dysfunction during and : An Endocrine Society Clinical Practice Guideline. J Clin Endocrinol Metab, 2012:97:3633-5350. 2. Wes TELLEZ. Overview of thyroid disease in . UpToDate. 2016. Accessed on December 10, 2015. B12: RECENT IMAGING/DIAGNOSTICS: --MRI/MRA/MRV Brain w/w contrast (): --MRI Cervical Spine w/w contrast (/): --EEG (/): PMH: PAST MEDICAL HISTORY Diagnosis Date - Anxiety 02/04/2010 - Depression 02/04/2010 - Thyroid disease PSH: PAST SURGICAL HISTORY Procedure Laterality Date - THYROIDECTOMY Right 2013 - TONSILLECTOMY HX CURRENT MEDS: No current hospital medications on file. Current Outpatient Prescriptions: atenolol (TENORMIN) 25 mg tablet Take 25 mg by mouth daily at bedtime. thyroid,pork (ARMOUR THYROID ORAL) Take 75 mg by mouth. JOLIVETTE 0.35 mg tablet once daily. LORazepam (ATIVAN) 0.5 mg tab every 6 hours as needed. Multivitamin capsule Take 1 capsule by mouth once daily. calcium-vitamin D (CALCIUM 500+D) 500 mg(1,250mg) -200 unit ORAL per tablet Take one daily with or after food that has healthy fats in it citalopram hydrobromide (CELEXA) 10 mg tablet Take 10 mg by mouth once daily. No current facility-administered medications for this visit. ALLERGIES: ALLERGIES Allergen Reactions - Vicodin [Hydrocodon* GI Upset FMH: No family history on file. SOCIAL: Social History Marital status: Spouse name: Years of education: Number of children: Occupational History Occupation Employer Comment [employer] * Social History Main Topics Smoking status: Never Smoker Smokeless tobacco: Never Used Alcohol use: Yes Comment: rare Drug use: No Sexual activity: Yes Partners with: Male REVIEW OF SYSTEMS (In addition to HPI): GEN: No fever/chills. No significant weight loss in last 6 months. HEENT: No recent head trauma. No recent URI. NECK: No recent neck trauma. CARDIO: No chest pain. No palpitations. No dizziness. No syncope. RESP: No SOB or DUTTON. No cough. GI: No nausea. No vomiting. No diarrhea. No constipation. No fecal incontinence. No melena. : No incontinence. No hesitancy. No frequency. No dysuria. No hematuria. MUSCULO: No myalgias. No arthralgias. NEURO: As per HPI. PSYCH: No depression. No anxiety. PHYSICAL EXAM: BP 103/68 Pulse 71 Ht 167.6 cm (5' 6) Wt 83.7 kg (184 lb 9.6 oz) SpO2 97% BMI 29.80 kg/m? GEN: Alert. NAD. Normal affect. Cooperative. HEENT: No icterus. Normal mucosa. No temporal artery tenderness. Fundoscopic exam unremarkable. NECK/BACK: No meningismus. No lymphadenopathy. No significant paraspinal neck or shoulder musculature tenderness or hypertonicity. No spinous process tenderness. CV: RRR. No M/G/R/C. No carotid bruits. RESP: CTA b/l. EXT: No cyanosis. No edema. No erythema. SKIN: No rashes. No lesions. NEUROLOGICAL: MENTAL STATUS: Alert and oriented x 3. Recent and remote memory intact. Immediate memory intact by 3 item recall and 7 digit recall. Attention knowledge intact. Speech fluent .Normal clock drawing. Normal copy of pentagon intersection. Reading intact. Writing intact. Comprehension intact. CN: II: Visual sanchez intact. PERRLA. No Papilledema. III, IV, : EOMI. No ptosis present. Normal saccades. V: Symmetric facial sensation to PP. VII: Face symmetric. VIII: Hearing symmetric. No nystagmus. IX, X: Symmetric palatal rise. XI: Symmetric shoulder shrug. XII: Tongue midline with symmetric movements. MOTOR: Finger tap normal. No involuntary movement seen during today's exam. Normal tone and strength. Right Upper Extremity: (of 5) Left Upper Extremity: (of 5) Deltoid 5 Deltoid 5 Biceps 5 Biceps 5 Triceps 5 Triceps 5 Finger extensors 5 Finger extensors 5 Finger flexors 5 Finger flexors 5 Dorsal interossei 5 Dorsal interossei 5 Abductor pollicis 5 Abductor pollicis 5 Right Lower Extremity: (of 5) Left Lower Extremity: (of 5) Hip flexors 5 Hip flexors 5 Hip extensors 5 Hip extensors 5 Knee flexors 5 Knee flexors 5 Knee extensors 5 Knee extensors 5 Dorsiflexors 5 Dorsiflexors 5 Plantarflexors 5 Plantarflexors 5 REFLEXES: Biceps ++ Biceps ++ Brachioradialis ++ Brachioradialis ++ Triceps ++ Triceps ++ Patellar ++ Patellar ++ Ankle jerk ++ Ankle jerk ++ Plantar response down Plantar response down Plantar response flexor b/l. No clonus. Negative Martinez/Troemner. Negative palmomental, grasp, rooting, snouting and glabellar blink reflexes. SENSATION: PP, Proprioception, Vibration intact and symmetric. Negative Romberg. CEREBELLAR: Normal F-N-F. Normal H-S. No dysmetria. No nystagmus. GAIT: Stable primary gait. Normal tandem gait. She was able to walk on tip of toes and heels with no difficulty and hop on one foot and has no imbalnce Toshia Bourgeois M.D. [facility] Department of Neurology May 23, 2018 Total time in minutes spent with patient, reviewing records, labs, imaging, formulating plan, and documentin minutes with more than 50% of the time spent in patient education/counselling/coordinating care with the patient and /or family. CNOV Observed: 05/23/2018 Status: COMPLETED Source: [place] 8:40 AM [facility] REPOSITORY Office Visit (NEURMM) RACHEL LOOMIS ([id number]) 1985 F Date Time Provider Department 05/23/18 8:40 AM TOSHIA BOURGEOIS During your visit today, we recorded the following information about you: Pulse Blood pressure Weight Height 71/minute 103/68 83.7 kg 1.676 m Toshia Bourgeois MD 05/26/2018 6:29 PM Signed NEUROLOGY CONSULT NOTE Please leave note in paper medical record. Previous records (physician notes, laboratory reports, and radiology reports) and imaging studies were reviewed and summarized as below. My recommendations will be communicated back to the patient's consulting physician(s) by way of shared medical record. REFERRING PHYSICIAN: ER Staff [facility] [address] [facility] [id number] Accompanied by: Self ASSESSMENT: 32 year old female who is hypothyroid following R thyroidectomy in 2013 for goiter ,she is on thyroxine ,she has depression and anxiety She is complaining of numbness and pain in the arms and legs face and tongue intermittently ,not every day Can last hours ,can happen in any position ,recently associated with headache ,which is also more frequent than before. She also had headache episodes with migrainous features in the summer and was taking small dose of imitrex with partial headache relief She says at that time didn't have the numbness which she thinks started a month ago Her Neurological exam today is non focal Migraine headache,can be associated with numbness and other symptoms As migraine is a diagnosis of exclusion then work up for other causes will be done Migraine headache with numbness PLAN: Migraine treatment acute and preventive medication Work up for other causes of numbness ---> work up for other causes of numbness and weakness which is episodic Office Visit on 05/23/18 -MRI BRAIN WO IVCON -VITAMIN D 25 HYDROXY -CONSULT TO PHYSICAL THERAPY -EMG(NEURO/NI) Patient's request for medication is as follows: No medications selected for refill. Prescription(s) as above. Please process accordingly. Toshia Bourgeois MD ---> Follow-up: 1-2 months, Tests results will be discussed in the follow up appointment Medications side effects explained and discussed with the patient . CC: numbness HxCC: 32 year old female , who presents for evaluation of multisystem and multiple complaints and previously had multiple visits to the ER For these symptoms A year ago she had leg pain and was given steroids that made the pain better But then she had numbness arms and legs together but tingling in the shoulder in the face Doesn't know how frequent Intermittent can feel it numbness in her tongue and neck Has been getting headache intermittent , Aunt has migriane She was given migraine medicine because of headache imitrex helped her headache but always recurrent partial releif of headache . 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 Two weeks ago she started having headache spots with photophobia phonophobia No nausea tylenol and went to lie down closing eyes left frontotemporal or mainly frontal with tenderness To touch ,headache can last hours The numbness is also intermittent Numbness free days 4 out of 7 with no numbness headaches every other day Subjective weakness in all four limbs Jelly feeling and vibration in the legs feels that her legs are cold and tight that she has been wearing socks No umbness in the toes not in the feet And since then She went to several ER Numbness all over started in the legs then went to the arms then face in her tongue . She has been complaining of leg pain since 2016 Back pain intermittently for which she has been treated but didn't go to therapy Intermittent Sitting for long time Neck pain too which is more frequent specially when sleepoing Neck pain with headache and without headache No falls No imbalnce Used to have dizziness years ago Meclizine helped On further neurologic questioning, the patient denies .. No new blurry, double or loss of vision. No new loss of hearing, vertigo, or tinnitus. No dysarthria, dysphonia or dysphagia. No new imbalance, frequent falls or incoordination. No bowel or bladder incontinence. No saddle anesthesia. No muscular atrophy or fasciculations. RECENT LABS: WBC (k/uL) Date Value 04/03/2018 11.56 (H) RBC (m/uL) Date Value 04/03/2018 4.52 Hemoglobin (g/dL) Date Value 04/03/2018 14.3 Hematocrit (%) Date Value 04/03/2018 40.4 MCV (fL) Date Value 04/03/2018 89.4 MCH (pG) Date Value 04/03/2018 31.6 MCHC (g/dL) Date Value 04/03/2018 35.4 RDW-CV (%) Date Value 04/03/2018 12.1 Platelet Count (k/uL) Date Value 04/03/2018 240 MPV (fL) Date Value 04/03/2018 10.8 Last BMP (Basic Metabolic Panel) Lab Results Component Value Date NA 138 04/05/2018 Lab Results Component Value Date K 3.5 04/05/2018 Lab Results Component Value Date CHLOR 104 04/05/2018 Lab Results Component Value Date CO2 30 04/05/2018 Lab Results Component Value Date BUN 9 04/05/2018 Lab Results Component Value Date CREAT 0.67 04/05/2018 Lab Results Component Value Date GLUC 99 04/05/2018 Lab Results Component Value Date ANION 7 04/05/2018 Lab Results Component Value Date CA 8.9 04/05/2018 TSH Date Value Ref Range Status 04/03/2018 1.150 0.400 - 5.500 uU/mL Final Comment: If the patient is , TSH reference range varies by gestational period: First Trimester 0.100-2.500 uU/mL Second Trimester 0.200-3.000 uU/mL Third Trimester 0.300-3.000 uU/mL References: 1. Newell L, Dejan M, Rickie EK, et al. Management of Thyroid Dysfunction during and : An Endocrine Society Clinical Practice Guideline. J Clin Endocrinol Metab, 2012:97:2543- 2565. 2. Wes TELLEZ. Overview of thyroid disease in . UpToDate. 2016. Accessed on December 10, 2015. B12: RECENT IMAGING/DIAGNOSTICS: --MRI/MRA/MRV Brain w/w contrast (): --MRI Cervical Spine w/w contrast (/): --EEG (/): PMH: PAST MEDICAL HISTORY Diagnosis Date - Anxiety 02/04/2010 - Depression 02/04/2010 - Thyroid disease PSH: PAST SURGICAL HISTORY Procedure Laterality Date - THYROIDECTOMY Right 2013 - TONSILLECTOMY HX CURRENT MEDS: No current hospital medications on file. Current Outpatient Prescriptions: atenolol (TENORMIN) 25 mg tablet Take 25 mg by mouth daily at bedtime. thyroid,pork (ARMOUR THYROID ORAL) Take 75 mg by mouth. JOLIVETTE 0.35 mg tablet once daily. LORazepam (ATIVAN) 0.5 mg tab every 6 hours as needed. Multivitamin capsule Take 1 capsule by mouth once daily. calcium-vitamin D (CALCIUM 500+D) 500 mg(1,250mg) -200 unit ORAL per tablet Take one daily with or after food that has healthy fats in it citalopram hydrobromide (CELEXA) 10 mg tablet Take 10 mg by mouth once daily. No current facility-administered medications for this visit. ALLERGIES: ALLERGIES Allergen Reactions - Vicodin [Hydrocodon* GI Upset FMH: No family history on file. SOCIAL: Social History Marital status: Spouse name: Years of education: Number of children: Occupational History Occupation Employer Comment [employer] * Social History Main Topics Smoking status: Never Smoker Smokeless tobacco: Never Used Alcohol use: Yes Comment: rare Drug use: No Sexual activity: Yes Partners with: Male REVIEW OF SYSTEMS (In addition to HPI): GEN: No fever/chills. No significant weight loss in last 6 months. HEENT: No recent head trauma. No recent URI. NECK: No recent neck trauma. CARDIO: No chest pain. No palpitations. No dizziness. No syncope. RESP: No SOB or DUTTON. No cough. GI: No nausea. No vomiting. No diarrhea. No constipation. No fecal incontinence. No melena. : No incontinence. No hesitancy. No frequency. No dysuria. No hematuria. MUSCULO: No myalgias. No arthralgias. NEURO: As per HPI. PSYCH: No depression. No anxiety. PHYSICAL EXAM: BP 103/68 Pulse 71 Ht 167.6 cm (5' 6) Wt 83.7 kg (184 lb 9.6 oz) SpO2 97% BMI 29.80 kg/m? GEN: Alert. NAD. Normal affect. Cooperative. HEENT: No icterus. Normal mucosa. No temporal artery tenderness. Fundoscopic exam unremarkable. NECK/BACK: No meningismus. No lymphadenopathy. No significant paraspinal neck or shoulder musculature tenderness or hypertonicity. No spinous process tenderness. CV: RRR. No M/G/R/C. No carotid bruits. RESP: CTA b/l. EXT: No cyanosis. No edema. No erythema. SKIN: No rashes. No lesions. NEUROLOGICAL: MENTAL STATUS: Alert and oriented x 3. Recent and remote memory intact. Immediate memory intact by 3 item recall and 7 digit recall. Attention knowledge intact. Speech fluent .Normal clock drawing. Normal copy of pentagon intersection. Reading intact. Writing intact. Comprehension intact. CN: II: Visual sanchez intact. PERRLA. No Papilledema. III, IV, : EOMI. No ptosis present. Normal saccades. V: Symmetric facial sensation to PP. VII: Face symmetric. VIII: Hearing symmetric. No nystagmus. IX, X: Symmetric palatal rise. XI: Symmetric shoulder shrug. XII: Tongue midline with symmetric movements. MOTOR: Finger tap normal. No involuntary movement seen during today's exam. Normal tone and strength. Right Upper Extremity: (of 5) Left Upper Extremity: (of 5) Deltoid 5 Deltoid 5 Biceps 5 Biceps 5 Triceps 5 Triceps 5 Finger extensors 5 Finger extensors 5 Finger flexors 5 Finger flexors 5 Dorsal interossei 5 Dorsal interossei 5 Abductor pollicis 5 Abductor pollicis 5 Right Lower Extremity: (of 5) Left Lower Extremity: (of 5) Hip flexors 5 Hip flexors 5 Hip extensors 5 Hip extensors 5 Knee flexors 5 Knee flexors 5 Knee extensors 5 Knee extensors 5 Dorsiflexors 5 Dorsiflexors 5 Plantarflexors 5 Plantarflexors 5 REFLEXES: Biceps ++ Biceps ++ Brachioradialis ++ Brachioradialis ++ Triceps ++ Triceps ++ Patellar ++ Patellar ++ Ankle jerk ++ Ankle jerk ++ Plantar response down Plantar response down Plantar response flexor b/l. No clonus. Negative Martinez/Troemner. Negative palmomental, grasp, rooting, snouting and glabellar blink reflexes. SENSATION: PP, Proprioception, Vibration intact and symmetric. Negative Romberg. CEREBELLAR: Normal F-N-F. Normal H-S. No dysmetria. No nystagmus. GAIT: Stable primary gait. Normal tandem gait. She was able to walk on tip of toes and heels with no difficulty and hop on one foot and has no imbalnce Toshia Bourgeois M.D. [facility] Department of Neurology May 23, 2018 Total time in minutes spent with patient, reviewing records, labs, imaging, formulating plan, and documentin minutes with more than 50% of the time spent in patient education/counselling/coordinating care with the patient and /or family. Toshia Bourgeois MD 05/23/2018 10:01 AM Signed Acute Headache Treatment: (What to take as-needed for headache) 1) imitrex 50 mg at earliest sign of migraine. May repeat once in 2 hours. Do not use more than 10 days per month. Headache Preventive Treatment (What to take on a daily basis to try to lessen frequency and/or intensity of headache): *Please keep in mind that it takes 4-6 weeks for the medication to start working well and 2-3 months at the appropriate dose before deciding if it will be useful or not. If it is not helping at all by this time, then we will discuss other medications to try. Supplements may take 3-6 months until you see full effect. Consider adding supplements: Magnesium citrate (other forms ok too) 400-800 mg daily +/- Coenzyme Q10 200 mg (or 150 mg) twice daily (or Qunol brand 100 mg daily) +/- Riboflavin (Vitamin B2) 400 mg daily (or 200 mg twice daily). You can sometimes buy supplements cheaper (especially Coenzyme Q10) at www.[employer] or at [employer]. General Headache Instructions: 1) Maintain a headache diary; learn to identify and avoid triggers. 2) Limit use of acute treatments (fweg-lzo-uoeqtze medications, triptans, etc.) to no more than 2 days per week or 10 days per month to prevent medication overuse headache (rebound headache). 3) Follow a regular schedule (including weekends and holidays) for the next 6 weeks: A) Don't skip meals. B) 8 hours of sleep nightly. C) Avoid the following common headache triggers: -Caffeine (coffee, chocolate, tea, cola/pop/soda (7-up, Sprite, Veronica Mist, Margaret Giovanna, Mug/A+W Root Beer, Minute Maid Nisula, Slice are okay)) -Foods containing nitrates (deli meat, ham, leblanc, sausage, hot dogs) -Tyramine (aged cheese; can only have Bolivian cheese, cottage cheese, Velveeta and fresh mozarella (most pizza uses aged mozarella)) -MSG (Vincentian/ foods, Doritos, all flavored chips and Ramen noodles) -Nutrasweet and artificial sweeteners D) Minimize stress. E) Exercise 30 minutes per day. Being overweight is associated with a 5 times increased risk of chronic migraine. F) Keep well hydrated and drink 6-8 glasses of water per day. 4) Initiate non-pharmacologic measures at the earliest onset of your headache. A) Rest and quiet in a cool, dark environment. B) Relax and reduce stress. C) Cold compress to head (place a dry washcloth to forehead, cover with a blue freezer packet and use a headband to press the freezer packet across the forehead and temples). 5) Don't wait!! Take the maximum allowable dosage of prescribed medication at the very earliest sign of headache. 6) Compliance: Take prescribed medication regularly as directed and at the first sign of a headache. 7) Communicate: Call your physician when problems arise, especially if your headaches change, increase in frequency/severity, or become associated with neurological symptoms (weakness, numbness, slurred speech, etc.). 8) Headache/pain management therapies: Consider various complementary methods, including medication, behavioral therapy, psychological counselling, biofeedback, massage therapy, acupuncture, and other modalities. Such measures may reduce the need for medications. Counseling for pain management, where patients learn to function and ignore/minimize their pain, seems to work very well. 9) Recommend changing family's attention and focus away from patient's headaches. Instead, emphasize daily activities. If first question of day is 'How are your headaches/Do you have a headache today?', then patient will constantly think about headaches, thus making them worse. Goal is to re-direct attention away from headaches, toward daily activities and other distractions. Avoiding Medication Overuse Headache (Rebound Headache): Based on current research, the types of medications and their frequency of use which converts a previously episodic headache (particularly migraine) into a chronic daily headache (any headache occurring 15 or more days per month for at least 4 hours per day) are as follows: ---> Over the counter medications, NSAIDS and combination analgesics: -More than 2 days per week, or more than 10 days per month. -These include medications such as Acetaminophen (Tylenol), Naproxen (Aleve), Ibuprofen (Advil, Motrin), Acetaminophen/Caffeine (Excedrin), Acetaminophen/Dichloralphenazone/Isometheptene (Midrin), Aspirin (ok to continue if taking for medical reasons), cold remedies and sleep-promoting agents, among others. ---> Triptans: -More than 2 days per week, or more than 10 days per month. -These include Sumatriptan (Imitrex), Sumatriptan/Naproxen (Treximet), Rizatriptan (Maxalt), Almotriptan (Axert), Zolmitriptan (Zomig), Eletriptan (Relpax), Naratriptan (Amerge), Frovatriptan (Frova). ---> Opiates/Opioids (Narcotics): -8 days or more per month. Some research suggests that even infrequent use of these medications makes migraine specific medications such as triptans and NSAIDs less effective. -These include any narcotics such as Acetaminophen/Hydrocodone (Vicodin), Acetaminophen/Oxycodone (Percocet), Acetaminophen/Propoxyhene (Darvocet), Acetaminophen/Codeine (Tylenol #3, #4), Tramadol (Ultram), Acetaminophen/Tramadol (Ultracet), Oxycodone (OxyContin), Hydromorphone (Dilaudid), Fentanyl, Butorphanol (Stadol), Morphine or any form of a Morphine derivative. ---> Butalbital containing medications: -5 or more days per month. As you can see, these are the worst offenders. -These include Acetaminophen/Butalbital/Caffeine (Fioricet, Esgic) Acetaminophen/Butalbital/Caffeine/Codeine (Fioricet with Codeine), Aspirin/Butalbital/Caffeine (Fiorinal), Aspirin/Butalbital/Caffeine/Codeine (Fiorinal with Codeine). Vitamins and herbs that show potential for migraine prevention: Magnesium: Magnesium (250 mg twice a day or 500 mg at bed) has a relaxant effect on smooth muscles such as blood vessels. We often give intravenous magnesium to patients who come into the emergency department for migraine because it helps to break the migraine. Three trials found 40-90% average headache reduction when used as a preventative. Magnesium also demonstrated the benefit in menstrually related migraine. Magnesium is part of the messenger system in the serotonin cascade and it is a good muscle relaxant. It is also useful for constipation which can be a side effect of other medications used to treat migraine. Good sources include nuts, whole grains, and tomatoes. Coenzyme Q10: This is present in almost all cells in the body and is critical component for the conversion of energy. Recent studies have shown that a nutritional supplement of CoQ10 can reduce the frequency of migraine attacks by improving the energy production of cells as with riboflavin. Doses of 200 mg (or 150 mg) twice a day have been shown to be effective. Riboflavin (Vitamin B2): 200 mg twice a day (or 400 mg daily). This vitamin assists nerve cells in the production of ATP, a principal energy storing molecule. It is necessary for many chemical reactions in the body. There have been at least 3 clinical trials of riboflavin using 400 mg per day all of which suggested that migraine frequency can be decreased. All 3 trials showed significant improvement in over half of migraine sufferers. The supplement is found in bread, cereal, milk, meat, and poultry. Most Americans get more riboflavin than the recommended daily allowance, however riboflavin deficiency is not necessary for the supplements to help prevent headache. Feverfew: Feverfew is a common garden herb [place] and popular in [place] as a treatment for disorders typically controlled by aspirin. The mechanism of action is unknown but is believed to be related to a chemical called parthenolide which helps the body use serotonin more effectively. Serotonin helps prevent migraine and assists with resolution when it occurs. Parthenolide also inhibits the release of histamine which is linked to pain and inflammation. Consistency of active ingredients in different products can be a problem. Some formulations don't have the active ingredient (parthenolide) that prevents migraine. A parthenolide content of 0.2% is generally recommended. Typical dosage is one capsule 3 times a day. Butterbur: This is an extract derived from the petisides hybridus root, which has been used for medicinal purposes since ancient times. A recent study found that 75 mg daily given over 4 months reduced headache frequency by 50% or more in over two thirds of the 245 patient studied. The 50 mg dose showed no significant effect. Side effects were infrequent, and the most common and unusual includes burping/belching. Raw butterbur root contains toxic chemicals that must be filtered out during the manufacturing process. To be sure you are choosing a safe product. Look for a formulation that does not contain pyrrolizidine alkaloids which are toxic to the liver. Melatonin: Increasing evidence shows correlation between melatonin secretion and headache conditions. Melatonin supplementation has shown decreased headache intensity and duration. It is widely used as a sleep aid. Sleep is nature's way of dealing with migraine. A dose of 3 mg is recommended to start for headaches including cluster headache. Higher doses up to 15 mg has been reviewed for use in Cluster headache and have been used. The rationale behind using melatonin for cluster is that many theories regarding the cause of Cluster headache center around the disruption of the normal circadian rhythm in the brain. This helps restore the normal circadian rhythm. It should be taken at least 2 hours before bedtime. Margaret: Margaret has a small amount of anti-histamine and anti-inflammatory action which may help headache. It is primarily used for nausea and may aid in the absorption of other medications. HEADACHE EXPECTATIONS: There are many types of headaches, and only a rare few in which complete relief can be expected. In general, there is no cure for headache, especially migraine based headaches. There is nothing available that completely prevents headaches from occurring, breaking through, or having periodic flare-ups and fluctuations. Regardless of what you are using on a daily basis for prevention, episodic headaches should still be expected, and periods where frequency may escalate and fluctuate are unavoidable. There is no quick fix for most headaches. Furthermore, the longer you have had high frequency headaches (such as chronic daily headache), the longer it will likely take to expect any improvement. In fact, some people will never improve, regardless of how many medications or other treatments we try. Our treatment strategy is to evaluate for possible causes of your headache, although testing is usually always normal, even in cases of daily continuous headaches for years. Most types of headache such as migraine are electrical brain disorders (similar to how epilepsy is an electrical brain disorders). Therefore, there is no testing that will reveal this dysfunctional electrical circuitry such on MRI, or other testing. We try to find a medication that may help lessen the frequency and/or severity of your headaches. The goal is not to completely stop them from happening, although if that happens, great! Different people respond to different medications, and some people just don't respond to anything, so it's usually a matter of trying different options. We can not predict if or when exactly you will respond to a treatment that we provide. Preventive headache medications take 4-6 weeks to start working, and 2-3 months to see full effect, assuming you reach an effective dose. Therefore, calling or messaging frequently because you have a headache flare prior to the 3 month sybil is unlikely to change anything, and unfortunately there is nothing available that will expedite this, so please try to avoid this. Our recommendation will generally be to give it adequate time first. If you are unable to wait it out for medications to work, we can also try IV infusions for some temporary relief. Or, we offer our 3 week outpatient chronic daily headache program (IMATCH) to help you better learn how to function and deal with chronic headache issues. In general, the best that preventive medications or other treatments (including Botox) are able to offer in migraine management (variable in other headache types) is a 50% improvement in frequency and/or severity of headache. That is our goal, and any additional benefit is considered a bonus. Some people do significantly better than this, others do not get close to this. Therefore, if your headaches are not improving by at least 3 months on your preventive strategy, contact us and we can discuss further adjustments. Keep in mind that complete headache cure is not a realistic expectation. Please pay attention to when your refills will need to be renewed. Due to the volume of phone calls daily, this could potentially take a few days, although we certainly try to honor your refill requests as soon as we can. You should call at least 1 week in advance of needing a refill to ensure you do not run out of medication. Keep in mind that refill requests on Fridays may not be filled until the following week. Referring Provider: ER STAFF [[id number]] Allergies As of Date: 05/23/2018 Noted Allergy Reaction VICODIN (HYDROCODONE-ACETAMINOPHE*02/10/2016 8 - GI Upset Date Reviewed: 05/23/2018 Reviewed by: Demetrice Morales - Fully Assessed Reason for Visit: New Patient Evaluation [154] Cmt: weakness, tingling, fatigue, and pain Primary Visit Diagnosis:B12 deficiency [E53.8] Other Visit Diagnoses:TSH (thyroid-stimulating hormone deficiency) [E03.8] Physical therapy evaluation, initial [Z01.89] Other general symptoms and signs [R68.89] Order(s):CONSULT TO PHYSICAL THERAPY [9022] Order #: [id number]: 1 VITAMIN D 25 HYDROXY [SQVITD] Order #: [id number] FUTURE EMG(NEURO/NI) [[id number]] Order #: [id number]: 1 FUTURE MRI BRAIN WO JOANIE [[id number]] Order #: [id number] FUTURE Prescriptions as of 05/23/2018 Sig: ATENOLOL 25 MG TABLET Take 25 mg by mouth daily at * ARMOUR THYROID ORAL Take 75 mg by mouth. JOLIVETTE 0.35 MG TABLET once daily. LORAZEPAM 0.5 MG TABLET every 6 hours as needed. MULTIVITAMIN CAPSULE Take 1 capsule by mouth once * CALCIUM CARBONATE 500 MG (1,2* Take one daily with or after * CITALOPRAM 10 MG TABLET Take 10 mg by mouth once donal* Problem List As Of Date 05/23/2018 Noted Resolved Anxiety [F41.9] INVALID FOR* Depression [F32.9] INVALID FOR* Vertigo [R42] INVALID FOR* Other instructions from your clinician: Acute Headache Treatment: (What to take as-needed for headache) 1) imitrex 50 mg at earliest sign of migraine. May repeat once in 2 hours. Do not use more than 10 days per month. Headache Preventive Treatment (What to take on a daily basis to try to lessen frequency and/or intensity of headache): *Please keep in mind that it takes 4-6 weeks for the medication to start working well and 2-3 months at the appropriate dose before deciding if it will be useful or not. If it is not helping at all by this time, then we will discuss other medications to try. Supplements may take 3-6 months until you see full effect. Consider adding supplements: Magnesium citrate (other forms ok too) 400-800 mg daily +/- Coenzyme Q10 200 mg (or 150 mg) twice daily (or Qunol brand 100 mg daily) +/- Riboflavin (Vitamin B2) 400 mg daily (or 200 mg twice daily). You can sometimes buy supplements cheaper (especially Coenzyme Q10) at www.[employer] or at [employer]. General Headache Instructions: 1) Maintain a headache diary; learn to identify and avoid triggers. 2) Limit use of acute treatments (hdls-vms-wwpymyx medications, triptans, etc.) to no more than 2 days per week or 10 days per month to prevent medication overuse headache (rebound headache). 3) Follow a regular schedule (including weekends and holidays) for the next 6 weeks: A) Don't skip meals. B) 8 hours of sleep nightly. C) Avoid the following common headache triggers: -Caffeine (coffee, chocolate, tea, cola/pop/soda (7-up, Sprite, Veronica Mist, Margaret Giovanna, Mug/A+W Root Beer, Minute Maid Nisula, Slice are okay)) -Foods containing nitrates (deli meat, ham, leblanc, sausage, hot dogs) -Tyramine (aged cheese; can only have Bolivian cheese, cottage cheese, Velveeta and fresh mozarella (most pizza uses aged mozarella)) -MSG (Vincentian/ foods, Doritos, all flavored chips and Ramen noodles) -Nutrasweet and artificial sweeteners D) Minimize stress. E) Exercise 30 minutes per day. Being overweight is associated with a 5 times increased risk of chronic migraine. F) Keep well hydrated and drink 6-8 glasses of water per day. 4) Initiate non-pharmacologic measures at the earliest onset of your headache. A) Rest and quiet in a cool, dark environment. B) Relax and reduce stress. C) Cold compress to head (place a dry washcloth to forehead, cover with a blue freezer packet and use a headband to press the freezer packet across the forehead and temples). 5) Don't wait!! Take the maximum allowable dosage of prescribed medication at the very earliest sign of headache. 6) Compliance: Take prescribed medication regularly as directed and at the first sign of a headache. 7) Communicate: Call your physician when problems arise, especially if your headaches change, increase in frequency/severity, or become associated with neurological symptoms (weakness, numbness, slurred speech, etc.). 8) Headache/pain management therapies: Consider various complementary methods, including medication, behavioral therapy, psychological counselling, biofeedback, massage therapy, acupuncture, and other modalities. Such measures may reduce the need for medications. Counseling for pain management, where patients learn to function and ignore/minimize their pain, seems to work very well. 9) Recommend changing family's attention and focus away from patient's headaches. Instead, emphasize daily activities. If first question of day is 'How are your headaches/Do you have a headache today?', then patient will constantly think about headaches, thus making them worse. Goal is to re-direct attention away from headaches, toward daily activities and other distractions. Avoiding Medication Overuse Headache (Rebound Headache): Based on current research, the types of medications and their frequency of use which converts a previously episodic headache (particularly migraine) into a chronic daily headache (any headache occurring 15 or more days per month for at least 4 hours per day) are as follows: ---> Over the counter medications, NSAIDS and combination analgesics: -More than 2 days per week, or more than 10 days per month. -These include medications such as Acetaminophen (Tylenol), Naproxen (Aleve), Ibuprofen (Advil, Motrin), Acetaminophen/Caffeine (Excedrin), Acetaminophen/Dichloralphenazone/Isometheptene (Midrin), Aspirin (ok to continue if taking for medical reasons), cold remedies and sleep-promoting agents, among others. ---> Triptans: -More than 2 days per week, or more than 10 days per month. -These include Sumatriptan (Imitrex), Sumatriptan/Naproxen (Treximet), Rizatriptan (Maxalt), Almotriptan (Axert), Zolmitriptan (Zomig), Eletriptan (Relpax), Naratriptan (Amerge), Frovatriptan (Frova). ---> Opiates/Opioids (Narcotics): -8 days or more per month. Some research suggests that even infrequent use of these medications makes migraine specific medications such as triptans and NSAIDs less effective. -These include any narcotics such as Acetaminophen/Hydrocodone (Vicodin), Acetaminophen/Oxycodone (Percocet), Acetaminophen/Propoxyhene (Darvocet), Acetaminophen/Codeine (Tylenol #3, #4), Tramadol (Ultram), Acetaminophen/Tramadol (Ultracet), Oxycodone (OxyContin), Hydromorphone (Dilaudid), Fentanyl, Butorphanol (Stadol), Morphine or any form of a Morphine derivative. ---> Butalbital containing medications: -5 or more days per month. As you can see, these are the worst offenders. -These include Acetaminophen/Butalbital/Caffeine (Fioricet, Esgic) Acetaminophen/Butalbital/Caffeine/Codeine (Fioricet with Codeine), Aspirin/Butalbital/Caffeine (Fiorinal), Aspirin/Butalbital/Caffeine/Codeine (Fiorinal with Codeine). Vitamins and herbs that show potential for migraine prevention: Magnesium: Magnesium (250 mg twice a day or 500 mg at bed) has a relaxant effect on smooth muscles such as blood vessels. We often give intravenous magnesium to patients who come into the emergency department for migraine because it helps to break the migraine. Three trials found 40-90% average headache reduction when used as a preventative. Magnesium also demonstrated the benefit in menstrually related migraine. Magnesium is part of the messenger system in the serotonin cascade and it is a good muscle relaxant. It is also useful for constipation which can be a side effect of other medications used to treat migraine. Good sources include nuts, whole grains, and tomatoes. Coenzyme Q10: This is present in almost all cells in the body and is critical component for the conversion of energy. Recent studies have shown that a nutritional supplement of CoQ10 can reduce the frequency of migraine attacks by improving the energy production of cells as with riboflavin. Doses of 200 mg (or 150 mg) twice a day have been shown to be effective. Riboflavin (Vitamin B2): 200 mg twice a day (or 400 mg daily). This vitamin assists nerve cells in the production of ATP, a principal energy storing molecule. It is necessary for many chemical reactions in the body. There have been at least 3 clinical trials of riboflavin using 400 mg per day all of which suggested that migraine frequency can be decreased. All 3 trials showed significant improvement in over half of migraine sufferers. The supplement is found in bread, cereal, milk, meat, and poultry. Most Americans get more riboflavin than the recommended daily allowance, however riboflavin deficiency is not necessary for the supplements to help prevent headache. Feverfew: Feverfew is a common garden herb [place] and popular in [place] as a treatment for disorders typically controlled by aspirin. The mechanism of action is unknown but is believed to be related to a chemical called parthenolide which helps the body use serotonin more effectively. Serotonin helps prevent migraine and assists with resolution when it occurs. Parthenolide also inhibits the release of histamine which is linked to pain and inflammation. Consistency of active ingredients in different products can be a problem. Some formulations don't have the active ingredient (parthenolide) that prevents migraine. A parthenolide content of 0.2% is generally recommended. Typical dosage is one capsule 3 times a day. Butterbur: This is an extract derived from the petisides hybridus root, which has been used for medicinal purposes since ancient times. A recent study found that 75 mg daily given over 4 months reduced headache frequency by 50% or more in over two thirds of the 245 patient studied. The 50 mg dose showed no significant effect. Side effects were infrequent, and the most common and unusual includes burping/belching. Raw butterbur root contains toxic chemicals that must be filtered out during the manufacturing process. To be sure you are choosing a safe product. Look for a formulation that does not contain pyrrolizidine alkaloids which are toxic to the liver. Melatonin: Increasing evidence shows correlation between melatonin secretion and headache conditions. Melatonin supplementation has shown decreased headache intensity and duration. It is widely used as a sleep aid. Sleep is nature's way of dealing with migraine. A dose of 3 mg is recommended to start for headaches including cluster headache. Higher doses up to 15 mg has been reviewed for use in Cluster headache and have been used. The rationale behind using melatonin for cluster is that many theories regarding the cause of Cluster headache center around the disruption of the normal circadian rhythm in the brain. This helps restore the normal circadian rhythm. It should be taken at least 2 hours before bedtime. Margaret: Margaret has a small amount of anti-histamine and anti-inflammatory action which may help headache. It is primarily used for nausea and may aid in the absorption of other medications. HEADACHE EXPECTATIONS: There are many types of headaches, and only a rare few in which complete relief can be expected. In general, there is no cure for headache, especially migraine based headaches. There is nothing available that completely prevents headaches from occurring, breaking through, or having periodic flare-ups and fluctuations. Regardless of what you are using on a daily basis for prevention, episodic headaches should still be expected, and periods where frequency may escalate and fluctuate are unavoidable. There is no quick fix for most headaches. Furthermore, the longer you have had high frequency headaches (such as chronic daily headache), the longer it will likely take to expect any improvement. In fact, some people will never improve, regardless of how many medications or other treatments we try. Our treatment strategy is to evaluate for possible causes of your headache, although testing is usually always normal, even in cases of daily continuous headaches for years. Most types of headache such as migraine are electrical brain disorders (similar to how epilepsy is an electrical brain disorders). Therefore, there is no testing that will reveal this dysfunctional electrical circuitry such on MRI, or other testing. We try to find a medication that may help lessen the frequency and/or severity of your headaches. The goal is not to completely stop them from happening, although if that happens, great! Different people respond to different medications, and some people just don't respond to anything, so it's usually a matter of trying different options. We can not predict if or when exactly you will respond to a treatment that we provide. Preventive headache medications take 4-6 weeks to start working, and 2-3 months to see full effect, assuming you reach an effective dose. Therefore, calling or messaging frequently because you have a headache flare prior to the 3 month sybil is unlikely to change anything, and unfortunately there is nothing available that will expedite this, so please try to avoid this. Our recommendation will generally be to give it adequate time first. If you are unable to wait it out for medications to work, we can also try IV infusions for some temporary relief. Or, we offer our 3 week outpatient chronic daily headache program (IMATCH) to help you better learn how to function and deal with chronic headache issues. In general, the best that preventive medications or other treatments (including Botox) are able to offer in migraine management (variable in other headache types) is a 50% improvement in frequency and/or severity of headache. That is our goal, and any additional benefit is considered a bonus. Some people do significantly better than this, others do not get close to this. Therefore, if your headaches are not improving by at least 3 months on your preventive strategy, contact us and we can discuss further adjustments. Keep in mind that complete headache cure is not a realistic expectation. Please pay attention to when your refills will need to be renewed. Due to the volume of phone calls daily, this could potentially take a few days, although we certainly try to honor your refill requests as soon as we can. You should call at least 1 week in advance of needing a refill to ensure you do not run out of medication. Keep in mind that refill requests on Fridays may not be filled until the following week. Encounter Status:Closed by TOSHIA BOURGEOIS MD on 05/26/18 OFFICE VISIT Observed: 05/15/2018 Status: F Source: [place] 7:26 PM [facility] Hours [facility] [address] [place] [address] OFFICE VISIT Date of Service: 05/15/18 MR#: [id number] Acct: [id number] Name: RACHEL LOOMIS Rep #: [id number] : 1985 Provider: HÉCTOR Frank Age/Sex: 32/F Location: [facility] Status: Signed Intake Vital Signs05/15/18 Height 5 ft 11 in 05/15/18 Weight: 185 lb Intake Visit Reasons: STILL HAS HEART FLUTTER Accompanied by: self Is patient in pain?: Yes Allergies acetaminophen [From Vicodin] Adverse Reaction (Intermediate, Verified 02/05/18 18:05) Nausea hydrocodone [From Vicodin] Adverse Reaction (Intermediate, Verified 02/05/18 18:05) Nausea Medications lorazepam 0.5 mg tablet 0.5 mg PO BID PRN #60 tab 02/05/18 [Rx Confirmed 02/05/18] meclizine 12.5 mg tablet 12.5 mg PO TID PRN 02/05/18 [History Confirmed 02/05/18] multivitamin,gf-ulhy-xrrmjfzj tablet 1 tab PO QDAY 02/05/18 [History Confirmed 02/05/18] sumatriptan 50 mg tablet 50 mg PO ONCE PRN 02/05/18 [History Confirmed 02/05/18] vit Bcplx C-vit E-folic acid-roberth-Zn 35 unit-5.5 mg-70 mcg- 20 mg tablet tab PO 02/05/18 [History Confirmed 02/05/18] thyroid (pork) 60 mg tablet 60 mg PO DAILY #90 tab 05/01/18 [Rx Confirmed 05/01/18] ciprofloxacin 500 mg tablet 500 mg PO BID #14 tab 05/10/18 [Rx Confirmed 05/10/18] atenolol 25 mg tablet 25 mg PO DAILY #30 tab 05/15/18 [Rx Confirmed 05/15/18] thyroid (pork) 15 mg tablet 15 mg PO DAILY #90 tab 05/15/18 [Rx Confirmed 05/15/18] Is last menstrual period known: Yes Post menopausal: No Patient : No PFSH Medical History Abnormal Pap smear of vagina (Acute) Anxiety disorder (Acute) DVT leg superficial thrombophlebitis (Acute) [place] teeth removed (Acute) Surgical History H/O thyroidectomy (Acute) History of tonsillectomy (Acute) Family History Other Colon cancer Diabetes Fatty liver Myocardial infarction Ovarian cancer Prostate cancer Uterine cancer Social History Smoking Status: Never smoker alcohol intake: current substance use type: does not use HPI HPI (General) HPI HPI: RACHEL LOOMIS, is a 32 F who presents to the office today for palpitations of the chest on and off and her R arm hurts . Starting to get migraines again and last time was summertime and dizzy at that time the pills did work for the migraine that I prescribed. Her appointmnt with the integrity specialist is 05/23/18 her labs are all normal, last ekg is good . Will start her oan low dose of atenolol and follow up with cardiology ROS Const Constitutional: Positive for chills Cardio Cardiology: Positive for fast heart rate and palpitations Exam Const Constitutional: Yes cooperative, Yes healthy appearing Orientation: Yes alert, awake and oriented x3 HENMT Head: Yes normocephalic Ear: Yes hearing grossly normal bilaterally Neck Neck: normal visual inspection Thyroid: thyroid normal Eyes General: Yes appearance normal, both eyes and all related structures Chest Chest palpation AND inspection: Yes normal inspection of the chest Resp Effort AND Inspection: Yes normal respiratory effort Auscultation: Yes clear to auscultation bilaterally Cardio Palpitation: Yes normal PMI Rate: Yes regular rate Rhythm: Yes regular rhythm GI Inspection: Yes normal to inspection Auscultation: Yes normal bowel sounds Musc Cervical Spine: Yes cervical ROM normal Thoracic/Lumbar Spine: Yes thoracic and lumbar spine normal to inspection Skin General: no rashes or lesions noted Lesions: Yes no lesions Extrem General: Yes normal to inspection Neuro General: Yes alert and oriented x3 Psych Appearance: Positive grossly normal Mood: Positive congruent mood Affect: Positive normal affect Assessment AND Plan Problems 1. Intermittent palpitations R00.2 2. Migraine with aura and without status migrainosus, not intractable G43.109 Patient Instructions Start the atenolol very low dose should not even notice on the med Will refer to cardiology next week Medications New: Refilled: Coding Level of Care Code Off vis,est,level 3 Diagnoses Intermittent palpitations R00.2 Migraine with aura and without status migrainosus, not intractable G43.109 Migraine type: with aura Status migrainosus presence: without status migrainosus Intractability: not intractable 05/15/181925 <Electronically signed by My MCKINLEY> Date My MCKINLEY CC: US THYROID/PARATHYROID Observed: 05/15/2018 Status: F Source: [facility] 4:07 PM CLINIC OTHER CAMPUS REPOSITORY * * *Final Report* * * DATE OF EXAM: May 15 2018 4:07PM [facility] 1048 - US THYROID/PARATHYROID / PROCEDURE REASON: E04.2-Multiple thyroid nodules * * * * Physician Interpretation * * * * THYROID ULTRASOUND CLINICAL HISTORY: History of nodules, right thyroidectomy in 2013 COMPARISON: None. TECHNIQUE: Sonography and Doppler imaging of the thyroid was performed. Images were obtained and stored in a permanent archive. RESULT: RIGHT LOBE: Status post right thyroidectomy LEFT LOBE: Size: 1.2x 1.3x 5.4 cm Echotexture: Homogeneous Nodules: Present Nodule 1 Location: Mid Size: 0.4 x 0.4 x 0.5 cm Characteristics: Hypoechoic with echogenic focus ISTHMUS: AP diameter: 3 mm Nodules: None. IMPRESSION: Subcentimeter left thyroid lobe nodule. Patient status post right thyroidectomy. Orbitread Operator: SILVANO Transcribe Date/Time: May 15 2018 4:13P Dictated by : BRITNEY MAC MD This examination was interpreted and the report reviewed and electronically signed by: BRITNEY MAC MD on May 15 2018 4:15PM EST [id number] CNCO Observed: 05/15/2018 Status: COMPLETED Source: [facility] 12:00 AM [facility] REPOSITORY Letter Text Sangita Lerner MS, , CCD, FACN, FACP, FACE Endocrinology, Diabetes AND Metabolism Department of Endocrinology Mail Code [id number] [address] [id number] Appointments: May 15, 2018 Ms. Rachel Loomis [address] [facility] [address] CLINIC #: [id number] Dear Ms. Churchillzman, Thank you for coming to see me recently, and for choosing the [facility]. Here is a copy of your recent thyroid test results: THYROID ULTRASOUND CLINICAL HISTORY: History of nodules, right thyroidectomy in 2013 TECHNIQUE: Sonography and Doppler imaging of the thyroid was performed. ? Images were obtained and stored in a permanent archive. RESULT: RIGHT LOBE: Status post right thyroidectomy LEFT LOBE: ?? ?Size: 1.2x 1.3x 5.4 cm ?? ?Echotexture: Homogeneous ?? ?Nodules: Present Nodule 1 Location: Mid Size: 0.4 x 0.4 x 0.5 cm Characteristics: Hypoechoic with echogenic focus ISTHMUS: ?? ? AP diameter: ?3 mm ?? ? Nodules: None. This shows that you have one very small thyroid nodule on the left and that the left thyroid gland is just a little bit bigger than normal Please continue to follow up with your primary care physician. I think it is reasonable to repeat the thyroid ultrasound in two years and I would be more than happy to see you back at that time Sincerely, Sangita Lerner MD, MS, CCD, FACN, FACP, FACE Signed electronically to expedite mailing. OFFICE VISIT Observed: 05/10/2018 Status: F Source: [place] 8:17 PM [facility] After Hours [facility] [address] [place] [address] OFFICE VISIT Date of Service: 05/10/18 MR#: [id number] Acct: [id number] Name: RACHEL LOOMIS Rep #: [id number] : 1985 Provider: HÉCTOR Frank Age/Sex: 32/F Location: [facility] Status: Signed Intake Vital Signs05/10/18 Height 5 ft 11 in 05/10/18 Weight: 188 lb Intake Visit Reasons: HEART FLUTTER Allergies acetaminophen [From Vicodin] Adverse Reaction (Intermediate, Verified 02/05/18 18:05) Nausea hydrocodone [From Vicodin] Adverse Reaction (Intermediate, Verified 02/05/18 18:05) Nausea Medications lorazepam 0.5 mg tablet 0.5 mg PO BID PRN #60 tab 02/05/18 [Rx Confirmed 02/05/18] meclizine 12.5 mg tablet 12.5 mg PO TID PRN 02/05/18 [History Confirmed 02/05/18] multivitamin,tb-bkza-tkwzumra tablet 1 tab PO QDAY 02/05/18 [History Confirmed 02/05/18] sumatriptan 50 mg tablet 50 mg PO ONCE PRN 02/05/18 [History Confirmed 02/05/18] vit Bcplx C-vit E-folic acid-roberth-Zn 35 unit-5.5 mg-70 mcg- 20 mg tablet tab PO 02/05/18 [History Confirmed 02/05/18] thyroid (pork) 15 mg tablet 15 mg PO DAILY #90 tab 05/01/18 [Rx Confirmed 05/01/18] thyroid (pork) 60 mg tablet 60 mg PO DAILY #90 tab 05/01/18 [Rx Confirmed 05/01/18] ciprofloxacin 500 mg tablet 500 mg PO BID #14 tab 05/10/18 [Rx Confirmed 05/10/18] Is last menstrual period known: Yes Post menopausal: No Patient : No PFSH Medical History Abnormal Pap smear of vagina (Acute) Anxiety disorder (Acute) DVT leg superficial thrombophlebitis (Acute) [place] teeth removed (Acute) Surgical History H/O thyroidectomy (Acute) History of tonsillectomy (Acute) Family History Other Colon cancer Diabetes Fatty liver Myocardial infarction Ovarian cancer Prostate cancer Uterine cancer Social History Smoking Status: Never smoker alcohol intake: current substance use type: does not use HPI HPI (General) HPI HPI: RACHEL LOOMIS, is a 32 F who presents to the office today for fluttering in her heart since Sunday. Did see the integrity specialist and she is going to Re US her thyroid . also c/o not able to empty her urine and it hurts and her bladder sandoval. Still having the tingling near her chins around her mouth and tipof her tongue. Not sure if the bladder infection can trip the heart but will treat the bladder and see if heart problem subsides ROS Const Constitutional: Positive for chills Cardio Cardiology: Positive for palpitations (15 -20 x an hour) and irregular heart rhythm (skips a beat) Gastro GI: Yes nausea/dyspepsia Genitourinary: Positive for urinary retention (not emptying and feel like her bladder is burning) Musc Musculoskeletal: Positive for tingling (lips and tongue) Neuro Neurology: Positive for tingling (lips and tongue) Exam Const Constitutional: Yes cooperative, Yes healthy appearing Orientation: Yes alert, awake and oriented x3 HENMT Head: Yes normocephalic Ear: Yes hearing grossly normal bilaterally Neck Neck: normal visual inspection Thyroid: thyroid normal Eyes General: Yes appearance normal, both eyes and all related structures Chest Chest palpation AND inspection: Yes normal inspection of the chest Resp Effort AND Inspection: Yes normal respiratory effort Auscultation: Yes clear to auscultation bilaterally Cardio Palpitation: Yes normal PMI Rate: Yes regular rate Rhythm: Yes regular rhythm GI Inspection: Yes normal to inspection Auscultation: Yes normal bowel sounds Musc Cervical Spine: Yes cervical ROM normal Thoracic/Lumbar Spine: Yes thoracic and lumbar spine normal to inspection Skin General: no rashes or lesions noted Lesions: Yes no lesions Extrem General: Yes normal to inspection Neuro General: Yes alert and oriented x3 Psych Appearance: Positive grossly normal Mood: Positive congruent mood Affect: Positive normal affect Results [facility] Office Urine Color Dk Yellow Last Edit by ELÍAS Bruner on 05/10/18 20:15 alot of mucous Assessment AND Plan Problems 1. Tingling of face R20.2 2. Palpitations R00.2 3. Urine retention R33.9 Patient Instructions Take the antibiotics till gone wait till on antibiotics for 5 days before deciding not working, if the heart palpitations continue will refer to cardiology Orders Orders: Medications New: Coding Level of Care Code Off vis,est,level 3 Diagnoses Tingling of face R20.2 Palpitations R00.2 Urine retention R33.9 05/10/182016 <Electronically signed by My MCKINLEY> Date My MCKINLEY CC: Observed: 05/10/2018 Status: F Source: [place] CULTURE, URINE 6:15 PM [facility] [place] [facility] Urine Culture ORGANISM 1: Mixed Gram Positive Organisms [place] Count >100,000 MIX CULTURE Mixed contaminants. Submit a new specimen if indicated. Performed By: #### [id number] #### [facility] [address] [place], [address] PROGRESS Observed: 04/30/2018 Status: COMPLETED Source: [place] 11:31 AM [facility] REPOSITORY HNO ID: [id number] Author: Sangita Lerner Service: (none) Author Type: Physician Type: Progress Notes Filed: 04/30/2018 12:02 PM Note Text: ENDOCRINOLOGY REFERRAL - THYROID DISORDER Referring Physician: My Frank NP CC: Thyroid HPI: Rachel Loomis is a 32 year old female who presents with well managed hypothyroid following R thyroidectomy in 2013 for goiter. She was seen in [place] at that time then moved to the [place] area. She has been maintained on 75 mg of armour x 2 months, prior to that she was on 60 mg; prior to that she was on naturthroid x about a year; and prior to that she was on levothyroxine. - did not need thyroid med until after thyroid surgery. - she was started on Celexa but then stopped it about one month into tx because of having some side effects Severity, modifying factors, context and associated signs and symptoms are as follows: ? Thyroid pain: none ? Mass effect: none ? Energy: ok ? Sleep: ok ? Temperature Intolerance: has been cold lately ? GI: notes nausea ? Weight: notes some weight loss ? Eye changes: new glasses recently; ? Memory: ok ? Diaphoresis: neg ? Skin: neg ? Neuro/Cognitive: intact; has noted some perioral tingling; previously also noted in her arms and legs before stopping the celexa ? Radiological imaging with contrast dyes within the last 3 months? none ? History of radiation exposure to head or neck area? none The remainder of the ROS is negative PAST MEDICAL HISTORY Diagnosis Date - Anxiety 02/04/2010 - Depression 02/04/2010 - Thyroid disease PAST SURGICAL HISTORY Procedure Laterality Date - THYROIDECTOMY Right 2013 - TONSILLECTOMY HX FAMILY HISTORY - Mother with a thyroid issue - no thyroid cancer in the family Social History Marital status: Spouse name: Years of education: Number of children: Occupational History Occupation Employer Comment [employer] * Social History Main Topics Smoking status: Never Smoker Smokeless tobacco: Never Used Alcohol use: Yes Comment: rare Drug use: No Sexual activity: Yes Partners with: Male MEDS Current Outpatient Prescriptions on File Prior to Visit: JOLIVETTE 0.35 mg tablet once daily. LORazepam (ATIVAN) 0.5 mg tab every 6 hours as needed. Multivitamin capsule Take 1 capsule by mouth once daily. calcium-vitamin D (CALCIUM 500+D) 500 mg(1,250mg) -200 unit ORAL per tablet Take one daily with or after food that has healthy fats in it citalopram hydrobromide (CELEXA) 10 mg tablet Take 10 mg by mouth once daily. Levothyroxine 112 mcg cap Take by mouth. NATURE-THROID 48.75 mg tab once daily. No current facility-administered medications on file prior to visit. LABS Component Latest Ref Rng AND Units 02/04/2010 04/01/2018 04/03/2018 TSH 0.400 - 5.500 uU/mL 3.820 0.93 1.150 IMAGING - none available to review PHYSICAL EXAM: BP 109/66 Pulse 72 Ht 5' 5 (1.65m) Wt 183 lb 3.2 oz (83.1kg) SpO2 97% LMP 04/20/2018 BMI 30.49 kg/(m2). General appearance: Well appearing, alert, in no acute distress, well-hydrated, well nourished. Skin: Skin color, texture, turgor normal, no suspicious rashes or lesions Head: Normocephalic, no masses, lesions, tenderness or abnormalities Eyes: Anicteric sclera. Pupils are equally round and reactive to light. Extraocular movements are intact. Neck: Supple, no adenopathy; thyroid aymmetric, surgically absent on the R, normal size on the L, no bruits Lungs: Lungs clear to auscultation. Heart: RRR Extremities: No deformities, edema, skin discoloration, clubbing or cyanosis. Good capillary refill. Musculoskeletal: Spine range of motion normal. Muscular strength intact Peripheral pulses: Normal Neuro: Gait normal. Reflexes normal and symmetric. Sensation grossly intact. ASSESSMENT AND PLAN 1. Postoperative hypothyroidism - ICD9: 244.0, ICD10: E89.0 (primary diagnosis) 2. Hx of partial thyroidectomy - ICD9: V15.29, ICD10: Z98.890 clinically euthyroid - recently also noted to be biochemically euthyroid - stated history of goiter with R thyroidectomy in 2013 3. Multiple thyroid nodules - ICD9: 241.1, ICD10: E04.2 - no follow up US in years - will check and then recommend follow up accordingly - US THYROID/PARATHYROID Continue to follow with PCP for routine care; will follow up with US results The patient has my card, and knows how to reach my office. I thank you for the opportunity to participate in the care of Rachel Loomis. Please do not hesitate to contact me if you have further concerns or questions. Sangita Lerner, MS, RD, MD, CCD, FACN, FACP, FACE Diplomate, [place] [employer] Diplomate, National Board of Physician Nutrition Specialists Endocrinology / / [facility] [id number] CNOV Observed: 04/30/2018 Status: COMPLETED Source: [place] 11:05 AM [facility] REPOSITORY Office Visit (JULIANNA) RACHEL LOOMIS ([id number]) 1985 F Date Time Provider Department 04/30/18 11:05 AM SANGITA LERNER During your visit today, we recorded the following information about you: Pulse Blood pressure Weight Height 72/minute 109/66 83.1 kg 1.651 m Sangita Lerner MD 04/30/2018 12:02 PM Signed ENDOCRINOLOGY REFERRAL - THYROID DISORDER Referring Physician: My Frank NP CC: Thyroid HPI: Rachel Loomis is a 32 year old female who presents with well managed hypothyroid following R thyroidectomy in 2013 for goiter. She was seen in [place] at that time then moved to the [place] area. She has been maintained on 75 mg of armour x 2 months, prior to that she was on 60 mg; prior to that she was on naturthroid x about a year; and prior to that she was on levothyroxine. - did not need thyroid med until after thyroid surgery. - she was started on Celexa but then stopped it about one month into tx because of having some side effects Severity, modifying factors, context and associated signs and symptoms are as follows: ? Thyroid pain: none ? Mass effect: none ? Energy: ok ? Sleep: ok ? Temperature Intolerance: has been cold lately ? GI: notes nausea ? Weight: notes some weight loss ? Eye changes: new glasses recently; ? Memory: ok ? Diaphoresis: neg ? Skin: neg ? Neuro/Cognitive: intact; has noted some perioral tingling; previously also noted in her arms and legs before stopping the celexa ? Radiological imaging with contrast dyes within the last 3 months? none ? History of radiation exposure to head or neck area? none The remainder of the ROS is negative PAST MEDICAL HISTORY Diagnosis Date - Anxiety 02/04/2010 - Depression 02/04/2010 - Thyroid disease PAST SURGICAL HISTORY Procedure Laterality Date - THYROIDECTOMY Right 2013 - TONSILLECTOMY HX FAMILY HISTORY - Mother with a thyroid issue - no thyroid cancer in the family Social History Marital status: Spouse name: Years of education: Number of children: Occupational History Occupation Employer Comment [employer] * Social History Main Topics Smoking status: Never Smoker Smokeless tobacco: Never Used Alcohol use: Yes Comment: rare Drug use: No Sexual activity: Yes Partners with: Male MEDS Current Outpatient Prescriptions on File Prior to Visit: JOLIVETTE 0.35 mg tablet once daily. LORazepam (ATIVAN) 0.5 mg tab every 6 hours as needed. Multivitamin capsule Take 1 capsule by mouth once daily. calcium-vitamin D (CALCIUM 500+D) 500 mg(1,250mg) -200 unit ORAL per tablet Take one daily with or after food that has healthy fats in it citalopram hydrobromide (CELEXA) 10 mg tablet Take 10 mg by mouth once daily. Levothyroxine 112 mcg cap Take by mouth. NATURE-THROID 48.75 mg tab once daily. No current facility-administered medications on file prior to visit. LABS Component Latest Ref Rng AND Units 02/04/2010 04/01/2018 04/03/2018 TSH 0.400 - 5.500 uU/mL 3.820 0.93 1.150 IMAGING - none available to review PHYSICAL EXAM: BP 109/66 Pulse 72 Ht 5' 5 (1.65m) Wt 183 lb 3.2 oz (83.1kg) SpO2 97% LMP 04/20/2018 BMI 30.49 kg/(m2). General appearance: Well appearing, alert, in no acute distress, well-hydrated, well nourished. Skin: Skin color, texture, turgor normal, no suspicious rashes or lesions Head: Normocephalic, no masses, lesions, tenderness or abnormalities Eyes: Anicteric sclera. Pupils are equally round and reactive to light. Extraocular movements are intact. Neck: Supple, no adenopathy; thyroid aymmetric, surgically absent on the R, normal size on the L, no bruits Lungs: Lungs clear to auscultation. Heart: RRR Extremities: No deformities, edema, skin discoloration, clubbing or cyanosis. Good capillary refill. Musculoskeletal: Spine range of motion normal. Muscular strength intact Peripheral pulses: Normal Neuro: Gait normal. Reflexes normal and symmetric. Sensation grossly intact. ASSESSMENT AND PLAN 1. Postoperative hypothyroidism - ICD9: 244.0, ICD10: E89.0 (primary diagnosis) 2. Hx of partial thyroidectomy - ICD9: V15.29, ICD10: Z98.890 clinically euthyroid - recently also noted to be biochemically euthyroid - stated history of goiter with R thyroidectomy in 2013 3. Multiple thyroid nodules - ICD9: 241.1, ICD10: E04.2 - no follow up US in years - will check and then recommend follow up accordingly - US THYROID/PARATHYROID Continue to follow with PCP for routine care; will follow up with US results The patient has my card, and knows how to reach my office. I thank you for the opportunity to participate in the care of Rachel Loomis. Please do not hesitate to contact me if you have further concerns or questions. Sangita Lerner, MS, RD, MD, CCD, FACN, FACP, FACE Diplomate, [place] [employer] Diplomate, National Board of Physician Nutrition Specialists Endocrinology / / [facility] [id number] Referring Provider: SELF [200] Allergies As of Date: 04/30/2018 Noted Allergy Reaction VICODIN (HYDROCODONE-ACETAMINOPHE*02/10/2016 8 - GI Upset Date Reviewed: 04/30/2018 Reviewed by: Sangita Lerner - Fully Assessed Reason for Visit: Thyroid Problem [110] Cmt: Thyroid has been up and down. Primary Visit Diagnosis:Postoperative hypothyroidism [E89.0] Other Visit Diagnoses:Hx of partial thyroidectomy [Z98.890] Multiple thyroid nodules [E04.2] Order(s): THYROID/PARATHYROID [[id number]] Order #: [id number] FUTURE Prescriptions as of 04/30/2018 Sig: ARMOUR THYROID ORAL Take 75 mg by mouth. JOLIVETTE 0.35 MG TABLET once daily. LORAZEPAM 0.5 MG TABLET every 6 hours as needed. MULTIVITAMIN CAPSULE Take 1 capsule by mouth once * CALCIUM CARBONATE 500 MG (1,2* Take one daily with or after * CITALOPRAM 10 MG TABLET Take 10 mg by mouth once donal* Problem List As Of Date 04/30/2018 Noted Resolved Anxiety [F41.9] INVALID FOR* Depression [F32.9] INVALID FOR* Vertigo [R42] INVALID FOR* Medications Discontinued During This Encounter Levothyroxine 112 mcg cap 04/30/2018 Class: Historical Med Route: ORAL Sig: Take by mouth. Disc: Discontinued by another Health Care Provider NATURE-THROID 48.75 mg tab 01/21/2016 04/30/2018 Class: Historical Med Sig: once daily. Disc: Discontinued by another Health Care Provider Follow-up and Disposition History Recorded Encounter Status:Closed by SANGITA LERNER MD on 04/30/18 OFFICE VISIT Observed: 04/29/2018 Status: F Source: [place] 10:05 PM [facility] [place] [facility] After Hours Family [facility] [address] [place] [address] OFFICE VISIT Date of Service: 04/29/18 MR#: [id number] Acct: [id number] Name: RACHEL LOOMIS Rep #: [id number] : 1985 Provider: HÉCTOR Frank Age/Sex: 32/F Location: [facility] Status: Signed Intake Vital Signs04/29/18 Height 5 ft 11 in 04/29/18 Weight: 174 lb Intake Visit Reasons: TSH, AND ? SIDE EFFECTS, CELEXA Allergies acetaminophen [From Vicodin] Adverse Reaction (Intermediate, Verified 02/05/18 18:05) Nausea hydrocodone [From Vicodin] Adverse Reaction (Intermediate, Verified 02/05/18 18:05) Nausea Medications lorazepam 0.5 mg tablet 0.5 mg PO BID PRN #60 tab 02/05/18 [Rx Confirmed 02/05/18] meclizine 12.5 mg tablet 12.5 mg PO TID PRN 02/05/18 [History Confirmed 02/05/18] multivitamin,if-fhes-cjamuqky tablet 1 tab PO QDAY 02/05/18 [History Confirmed 02/05/18] sumatriptan 50 mg tablet 50 mg PO ONCE PRN 02/05/18 [History Confirmed 02/05/18] vit Bcplx C-vit E-folic acid-roberth-Zn 35 unit-5.5 mg-70 mcg- 20 mg tablet tab PO 02/05/18 [History Confirmed 02/05/18] thyroid (pork) 15 mg tablet 15 mg PO DAILY #30 tab 04/04/18 [Rx Confirmed 04/04/18] thyroid (pork) 60 mg tablet 60 mg PO DAILY #30 tab 04/04/18 [Rx Confirmed 04/04/18] PFSH Medical History Abnormal Pap smear of vagina (Acute) Anxiety disorder (Acute) DVT leg superficial thrombophlebitis (Acute) [place] teeth removed (Acute) Surgical History H/O thyroidectomy (Acute) History of tonsillectomy (Acute) Family History Other Colon cancer Diabetes Fatty liver Myocardial infarction Ovarian cancer Prostate cancer Uterine cancer Social History Smoking Status: Never smoker alcohol intake: current substance use type: does not use HPI HPI (General) HPI HPI: RACHEL LOOMIS, is a 32 F who presents to the office today for the tingling in her face and now her feet . Doing better off the celexa . Last 1/2 dose is Sun .Last week had worsening symptoms but this week is better Has been feeling N and no appetite and has lost weight from 190 to 174 . weighting for her neurology appointment in May 23 [facility] Musculoskeletal: Positive for tingling (tip of her tongue) and numbness (feet) Neuro Neurology: Positive for tingling (tip of her tongue) and numbness (feet) Exam Const Constitutional: Yes cooperative, Yes healthy appearing Orientation: Yes alert, awake and oriented x3 HENMT Head: Yes normocephalic Ear: Yes hearing grossly normal bilaterally Neck Neck: normal visual inspection Thyroid: thyroid normal Eyes General: Yes appearance normal, both eyes and all related structures Chest Chest palpation AND inspection: Yes normal inspection of the chest Resp Effort AND Inspection: Yes normal respiratory effort Auscultation: Yes clear to auscultation bilaterally Cardio Palpitation: Yes normal PMI Rate: Yes regular rate Rhythm: Yes regular rhythm GI Inspection: Yes normal to inspection Auscultation: Yes normal bowel sounds [facility] Cervical Spine: Yes cervical ROM normal Thoracic/Lumbar Spine: Yes thoracic and lumbar spine normal to inspection Skin General: no rashes or lesions noted Lesions: Yes no lesions Extrem General: Yes normal to inspection Neuro General: Yes alert and oriented x3 Psych Appearance: Positive grossly normal Mood: Positive congruent mood Affect: Positive normal affect Assessment AND Plan Problems 1. Hypothyroidism (acquired) E03.9 2. Tingling of face R20.2 Patient Instructions recheck TSH today will call with the results of the the labs drawh today Coding Level of Care Code Off vis,est,level 3 Diagnoses Hypothyroidism (acquired) E03.9 Tingling of face R20.2 04/29/18 220 <Electronically signed by My MCKINLEY> Date My MCKINLEY CC: THYROID STIM HORMONE Collected: 04/29/2018 Status: F Source: [place] (TSH) 6:25 PM [facility] REPOSITORY TYPE CODE TESTS RESULT OUT OF RANGE REFERENCE UNITS LAB L501.9520 0.358-3.74 uIU/mL Normal TSH 0.50 Performed By: #### L501.9520 #### [facility] [address] [place], [place], [address] ED NOTE Observed: 04/20/2018 Status: COMPLETED Source: [place] 8:54 PM [facility] REPOSITORY HNO ID: [id number] Author: Corrie (Rn) SMITHA Ruiz Service: Emergency Medicine Author Type: Registered Nurse Type: ED Notes Filed: 04/20/2018 8:55 PM Note Text: Dc instr to fu w pmd, return prn. Verb und. Pt is AANDO, wdp, resps even and unlabored, YUN, relaxed expression and posture. Pt does not appear to be in any distress. Ambulates from ED with steady upright gait ED PROV NOTE Observed: 04/20/2018 Status: COMPLETED Source: [place] 8:47 PM [facility] REPOSITORY HNO ID: [id number] Author: Imer Tariq MD Service: Emergency Medicine Author Type: Physician Type: ED Provider Notes Filed: 04/20/2018 8:56 PM Note Text: ED Provider Note Patient Name: Rachel Loomis SERVICE DATE: 04/20/18 History Patient presents with: Numbness Ms Denny presents with a several week history of diffuse whole body tingling. States it is from head to toe, both sides, including mouth and tongue. She has been trying to research what it might be on the internet, has been getting extremely anxious about all of the dangerous possibilities. She has had multiple life stressors in the last year or so. Started around March 31, since then she has had several ED visits and several visits to her PCP. She has been on chronic ativan, was started on celexa [address] had [address] head, TSH, CBC, CMP, test, UA all of which were negative. She states her doctor ran a big workup and her parvo test came back positive and trace positive mono. I do not have access to these records. She has an appointment with a neurologist but not until the end of April. She states the symptoms are the same as they have been today but she is just extremely anxious that something is wrong with her. PAST MEDICAL HISTORY Diagnosis Date - Anxiety 02/04/2010 - Depression 02/04/2010 - Thyroid disease PAST SURGICAL HISTORY Procedure Laterality Date - THYROID SURGERY HX r partial - THYROIDECTOMY 2014 - TONSILLECTOMY HX No family history on file. Social History Social History Main Topics - Smoking status: Never Smoker - Smokeless tobacco: Never Used - Alcohol use Yes Comment: rare - Drug use: No - Sexual activity: Yes Partners: Male ALLERGIES Allergen Reactions - Vicodin [Hydrocodon* GI Upset Review of Systems Constitutional: Negative. Negative for chills and fever. HENT: Negative. Negative for congestion and sore throat. Eyes: Negative. Negative for visual disturbance. Respiratory: Negative. Negative for cough, shortness of breath and wheezing. Cardiovascular: Negative. Negative for chest pain. Gastrointestinal: Negative. Negative for abdominal pain, diarrhea and vomiting. Endocrine: Negative. Genitourinary: Negative. Negative for difficulty urinating. Musculoskeletal: Negative. Negative for arthralgias and myalgias. Skin: Negative. Negative for color change and rash. Allergic/Immunologic: Negative. Neurological: Positive for numbness. Negative for dizziness, tremors, seizures, syncope, facial asymmetry, speech difficulty, weakness, light-headedness and headaches. Hematological: Negative. Negative for adenopathy. Does not bruise/bleed easily. Psychiatric/Behavioral: Positive for decreased concentration and sleep disturbance. Negative for behavioral problems, confusion, dysphoric mood, hallucinations, self-injury and suicidal ideas. The patient is nervous/anxious. The patient is not hyperactive. All other systems reviewed and are negative. Physical Exam BP 136/67 Pulse 68 Temp (Src) 97.3 (Tympanic) Resp 18 Ht 5' 6 (1.68m) Wt 190 lb (86.2kg) SpO2 100% LMP 04/20/2018 BMI 30.68 kg/(m2). Physical Exam Constitutional: She is oriented to person, place, and time. She appears well-developed and well-nourished. HENT: Head: Normocephalic and atraumatic. Eyes: Pupils are equal, round, and reactive to light. EOM are normal. Neck: Normal range of motion. Neck supple. Cardiovascular: Normal rate, regular rhythm, normal heart sounds and intact distal pulses. Exam reveals no gallop and no friction rub. No murmur heard. Pulmonary/Chest: Effort normal and breath sounds normal. No respiratory distress. She has no wheezes. She has no rales. Abdominal: Soft. There is no tenderness. There is no rebound and no guarding. Musculoskeletal: Normal range of motion. She exhibits no edema or tenderness. Neurological: She is alert and oriented to person, place, and time. No cranial nerve deficit. Normal speech, no visual field deficit. No facial droop. 5/5 strength B UE and LE, no UE or LE ataxia. Normal gait. Normal objective sensation. NIH 0. Skin: Skin is warm and dry. No rash noted. No erythema. Psychiatric: She has a normal mood and affect. Her behavior is normal. Judgment and thought content normal. Diagnostic Testing ED Labs Ordered and Reviewed - No data to display Procedures ED Course / Clinical Impression Clinical Impressions as of Apr 20 2047 Paresthesias Anxiety MDM / Disposition / Plan I had a long discussion with the patient and her mother. We reviewed all of the testing she has had thus far, I do not see an indication to repeat these tests at this time. I do think there is an anxiety component to this (patient is taking ativan 2-3 times a day and having anxiety about whether it will work) however I think follow up with neurology to rule out other causes is appropriate. She has an appointment at the end of April, I have given her another neurology referral to see if she can get in quicker. She is very nervous about being able to return to work on Sunday so I have given her a work note although I have encouraged her to try to return to work if at all possible as I think sitting home may make the symptoms worse. Her and her mother are in agreement with this and express understanding. The patient was DISCHARGED: Counseled patient and mother regarding suspected diagnosis AND need for follow-up. Discharged home with verbal and written instructions. They were instructed to return as needed for persistent or worsening symptoms or any new concerns. Condition at time of disposition: stable SIGNATURE: MD Imer Salazar MD 04/20/182055 OFFICE VISIT Observed: 04/17/2018 Status: F Source: [place] 2:31 PM [facility] [place] [facility] [address] [place] [address] OFFICE VISIT Date of Service: 04/16/18 MR#: [id number] Acct: [id number] Name: EBONIERACHEL M Rep #: [id number] : 1985 Provider: HÉCTOR Frank Age/Sex: 32/F Location: [facility] Status: Signed Intake Vital Signs04/16/18 Height 5 ft 11 in 04/16/18 Weight: 200 lb Intake Visit Reasons: F/U Accompanied by: self Is patient in pain?: No Allergies acetaminophen [From Vicodin] Adverse Reaction (Intermediate, Verified 02/05/18 18:05) Nausea hydrocodone [From Vicodin] Adverse Reaction (Intermediate, Verified 02/05/18 18:05) Nausea Medications amoxicillin 875 mg-potassium clavulanate 125 mg tablet 1 tab PO BID #20 tab 02/05/18 [Rx Confirmed 02/05/18] lidocaine 2 % mucosal jelly 1 applic TOPICAL BID-QID PRN #60 ml 02/05/18 [Rx Confirmed 02/05/18] lorazepam 0.5 mg tablet 0.5 mg PO BID PRN #60 tab 02/05/18 [Rx Confirmed 02/05/18] meclizine 12.5 mg tablet 12.5 mg PO TID PRN 02/05/18 [History Confirmed 02/05/18] multivitamin,wz-uwfl-zcajqgxu tablet 1 tab PO QDAY 02/05/18 [History Confirmed 02/05/18] sumatriptan 50 mg tablet 50 mg PO ONCE PRN 02/05/18 [History Confirmed 02/05/18] vit Bcplx C-vit E-folic acid-roberth-Zn 35 unit-5.5 mg-70 mcg- 20 mg tablet tab PO 02/05/18 [History Confirmed 02/05/18] citalopram 10 mg tablet 10 mg PO DAILY #30 tab 04/02/18 [Rx Confirmed 04/02/18] thyroid (pork) 15 mg tablet 15 mg PO DAILY #30 tab 04/04/18 [Rx Confirmed 04/04/18] thyroid (pork) 60 mg tablet 60 mg PO DAILY #30 tab 04/04/18 [Rx Confirmed 04/04/18] Is last menstrual period known: Yes Post menopausal: No Patient : No PFSH Medical History Abnormal Pap smear of vagina (Acute) Anxiety disorder (Acute) DVT leg superficial thrombophlebitis (Acute) [place] teeth removed (Acute) Surgical History H/O thyroidectomy (Acute) History of tonsillectomy (Acute) Family History Other Colon cancer Diabetes Fatty liver Myocardial infarction Ovarian cancer Prostate cancer Uterine cancer Social History Smoking Status: Never smoker alcohol intake: current substance use type: does not use HPI HPI (General) HPI HPI: RACHEL LOOMIS, is a 32 F who presents to the office today for follow up on her medication celexa and fill out more paper work . She is not having the feeling anymore and is ready to go back to work . She still is going to see neurology Her labs came back positive for parvo and EBV viruses and They may have sent her into a anxiety attacks and panic disorder. Will return her to work ,as long as she feels good and will continue to follow up with on a regular basis till seen by neurology. ROS Const Constitutional: No anorexia, body ache, chills, excessive sweating, fatigue, fever(s), frequent falls, headache(s), decreased energy, malaise, night sweats, snoring, weakness, weight change, sleep problems, abnormal sleep pattern, change in appetite or other Eyes Eyes: No blurry vision, change in vision, double vision, discharge, dry eyes, bulging eyes, floaters, visual disturbances, eye pain, light sensitivity, spots in vision, tunnel vision or other ENT ENT: No headache(s), abnormal hearing, ear pain, ear discharge, ear pressure, hearing loss, tinnitus, dizziness/vertigo, balance problems, nosebleed/epistaxis, nasal congestion, nasal obstruction, nose pain, sinus pressure, sinus pain, nasal discharge, post nasal drip, facial pain, dental pain, dry mouth, difficulty swallowing, bad breath, hoarseness, lip swelling, mouth lesions, mouth pain, neck pain, sore throat, tongue swelling, throat swelling or other Resp Respiratory: No snoring, cough, change in phlegm color, chest congestion, excessive phlegm production, hemoptysis, pain on inspiration, shortness of breath, pain with cough, stridor, wheezing or other Cardio Cardiology: No excessive sweating, chest pain at rest, chest pain with exertion, leg pain with exertion, shortness of breath, dyspnea on exertion, generalized swelling, irregular heart rhythm, lightheadedness, orthopnea, radiating jaw, neck or arm pain, fast heart rate, slow heart rate, palpitations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 RANGE REFERENCE UNITS LAB L100.1000 4.4-11.0 K/mm3 High WBC 12.2 LAB L100.1200 4.2-5.4 M/mm3 Normal RBC 4.79 LAB L100.1300 12.0-15.0 g/dl Normal HGB 15.0 LAB L100.1400 37-47 % Normal HCT 43.3 LAB L100.1500 81-99 fL Normal MCV 90.4 LAB L100.1600 27.0-32.0 pg Normal MCH 31.3 LAB L100.1700 32-36 g/gl Normal MCHC 34.6 LAB L100.1810 11.6-14.6 % Normal RDW CV 12.4 LAB L100.1820 35.1-43.9 fl Normal RDW SD 41.0 LAB L100.1900 150-450 K/mm3 Normal PLT 265 LAB L100.2000 6.2-12.0 fl Normal MPV 10.7 LAB L100.2100 47-70 % Normal NEUT% 60.0 LAB L100.2200 19-41 % Normal LY% 30.1 LAB L100.2300 0-10 % Normal MONO% 8.2 LAB L100.2400 0-5 % Normal EO% 1.1 LAB L100.2500 0-1 % Normal BASO% 0.4 LAB L100.2550 0.0-0.9 % Normal IM GRAN % 0.200 Result Comment: IG% - Immature Granulocytes (promyelocytes, myelocytes and metamyelocytes) > 1% indicates that a LEFT SHIFT is Present. LAB L100.2620 2.0-7.7 X10 3/uL Normal Absolute Neut 7.3 LAB L100.2720 0.83-4.51 X10 3/ul Normal Absolute Lymph 3.67 Performed By: #### L100.0100, L101.9900, L500.4050, L501.3620, L501.9520, L505.7010, L506.0400 #### [facility] [address] [place], [place], [address] ERYTHROCYTE SED RATE Collected: 04/04/2018 Status: F Source: [place] 7:50 PM [facility] [place] CODE TESTS RESULT OUT OF RANGE REFERENCE UNITS LAB L102.0000 0-20 mm/hr Normal SED RATE 10 Performed By: #### L100.0100, L101.9900, L500.4050, L501.3620, L501.9520, L505.7010, L506.0400 #### [facility] [address] [place], [place], [address] COMPREHENSIVE METABOLIC Collected: 04/04/2018 Status: F Source: [facility] 7:50 PM [facility] [place] TYPE CODE TESTS RESULT OUT OF RANGE REFERENCE UNITS LAB L501.0100 74-106 mg/dL Normal GLU 87 Result Comment: Please note revised GLUCOSE reference range effective 2017. LAB L501.1000 7-18 mg/dL Normal BUN 11 LAB L501.1100 0.55-1.02 mg/dL Normal CREAT,SERUM 0.73 Result Comment: The validity of the calculated GFR AND GFRAA in patients over 70 years has not been determined. Clinical correlation is essential. LAB L501.1110 >60 mL/min Normal EST GFR 98 Result Comment: Non- GFR Calc LAB L501.1115 >60 mL/min Normal EST GFR - AA 119 Result Comment: GFR Calc LAB L501.1300 10-20 RATIO Normal BUN/CRE 15.0 LAB L501.1500 6.4-8.2 g/dL High T PROT 8.3 LAB L501.1800 3.2-5.0 g/dL Normal ALB 4.0 LAB L501.1950 2.2-4.2 g/dL High GLOB 4.3 LAB L501.2000 0.9-2.4 RATIO Normal A/G 0.9 LAB L501.2200 8.5-10.1 mg/dL CA Normal 9.1 LAB L501.4100 15-37 U/L Low AST 14 LAB L501.4305 45-117 U/L Normal ALK P 94 LAB L501.4405 13-56 U/L Normal ALT 37 LAB L501.4600 0.20-1.00 mg/dL T Normal BILI 0.40 LAB L501.5300 136-145 mmol/L NA Normal 141 LAB L501.5600 3.5-5.1 mmol/L K Normal 3.5 LAB L501.5900 98-107 mmol/L CL Normal 103 LAB L501.6100 21.0-32.0 mmol/L Normal CO2 30.0 LAB L501.6200 5-15 Normal GAP 8 Performed By: #### L100.0100, L101.9900, L500.4050, L501.3620, L501.9520, L505.7010, L506.0400 #### [facility] [address] [place], [place], [address] CPK TOTAL, CREATINE Collected: 04/04/2018 Status: F Source: [place] 7:50 PM [facility] [place] TYPE CODE TESTS RESULT OUT OF RANGE REFERENCE UNITS LAB L501.3620 26-192 U/L Normal CPK TOTAL 77 Performed By: #### L100.0100, L101.9900, L500.4050, L501.3620, L501.9520, L505.7010, L506.0400 #### [facility] [address] [place], [place], [address] THYROID STIM HORMONE Collected: 04/04/2018 Status: F Source: [place] (TSH) 7:50 PM [facility] [place] TYPE CODE TESTS RESULT OUT OF RANGE REFERENCE UNITS LAB L501.9520 0.358-3.74 uIU/mL Normal TSH 2.39 Performed By: #### L100.0100, L101.9900, L500.4050, L501.3620, L501.9520, L505.7010, L506.0400 #### [facility] [address] [place], [place], [id number] RHEUMATOID FACTOR Collected: 04/04/2018 Status: F Source: [place] 7:50 PM [facility] [place] TYPE CODE TESTS RESULT OUT OF RANGE REFERENCE UNITS LAB L505.7010 <15 IU/mL Normal RHEUMATOID FAC < 10.0 Performed By: #### L100.0100, L101.9900, L500.4050, L501.3620, L501.9520, L505.7010, L506.0400 #### [facility] [address] [place], [place], [id number] T4 FREE DIRECT Collected: 04/04/2018 Status: F Source: [place] 7:50 PM [facility] [place] TYPE CODE TESTS RESULT OUT OF RANGE REFERENCE UNITS LAB L506.0400 0.76-1.46 ng/dL Normal T4 FREE 1.03 DIRECT Performed By: #### L100.0100, L101.9900, L500.4050, L501.3620, L501.9520, L505.7010, L506.0400 #### [facility] [address] [place], [place], [address] VITAMIN B12 Collected: 04/04/2018 Status: F Source: [place] 7:50 PM [facility] [place] TYPE CODE TESTS RESULT OUT OF RANGE REFERENCE UNITS LAB L503.0105 211-911 pg/mL Normal Vitamin B12 750 Performed By: #### L503.0105 #### [facility] [address] [place], [address] ALDOLASE Collected: 04/04/2018 Status: F Source: [place] 7:50 PM [facility] [place] TYPE CODE TESTS RESULT OUT OF RANGE REFERENCE UNITS LAB L3100.7000 3.3-10.3 U/L Normal ALDOLASE 2030 4.7 Result Comment: Performed at: [facility] [id number] Hardening Machine Operator: Jignesh Barry PhD, Phone: [phone] Performed By: #### L3100.7000 #### [facility] (refer to report for specific site) refer to report for address and phone number CHATA W/ REFLEX MULT Collected: 04/04/2018 Status: F Source: [place] CONFIR[place] 7:50 PM [facility] [place] TYPE CODE TESTS RESULT OUT OF RANGE REFERENCE UNITS LAB L3100.5475 Negative Normal Negative CHATA-DIRECT Result Comment: Performed at: [facility] [id number] Hardening Machine Operator: Jignesh Barry PhD, Phone: [phone] Performed By: #### L3100.5450 #### [facility] (refer to report for specific site) refer to report for address and phone number ED NOTE Observed: 04/03/2018 Status: COMPLETED Source: [place] 3:59 PM [facility] OTHER [place] REPOSITORY HNO ID: [id number] Author: Karyna FerrellRn) SMITHA Carrera Service: (none) Author Type: Registered Nurse Type: ED Notes Filed: 04/03/2018 4:02 PM Note Text: Discussed with patient need to follow up with specialist and phone number given, ED PROV NOTE Observed: 04/03/2018 Status: COMPLETED Source: [place] 3:36 PM [facility] OTHER CAMPUS REPOSITORY HNO ID: [id number] Author: Opal Anderson ([place]) Service: (none) Author Type: Physician Field Pipe Lines Supervisor Type: ED Provider Notes Filed: 04/03/2018 3:39 PM Note Text: ED Provider Note Patient Name: Rachel Loomis SERVICE DATE: 04/03/18 History Patient presents with: Weakness 32-year-old female, with history of anxiety, depression and thyroid disease, presents for episodes of generalized weakness. Mostly in her arms and legs bilaterally. Today she felt as if her extremities were cold. She's been seen at an ED ?2 as well as her PCPs office yesterday. Thus far she's had an unremarkable workup. She is concerned because she has had a history of panic attacks but this felt differently. No other specific symptoms such as chest pain shortness of breath abdominal pain nausea vomiting diarrhea or strokelike symptoms. History provided by: Patient and relative PAST MEDICAL HISTORY Diagnosis Date - Anxiety 02/04/2010 - Depression 02/04/2010 - Thyroid disease PAST SURGICAL HISTORY Procedure Laterality Date - THYROID SURGERY HX r partial - THYROIDECTOMY 2013 - TONSILLECTOMY HX Social History Social History Main Topics - Smoking status: Never Smoker - Smokeless tobacco: Never Used - Alcohol use Yes Comment: rare - Drug use: No - Sexual activity: Yes Partners: Male ALLERGIES Allergen Reactions - Vicodin [Hydrocodon* GI Upset Review of Systems Constitutional: Negative for activity change, appetite change, chills and fever. HENT: Negative. Eyes: Negative for photophobia and visual disturbance. Respiratory: Negative for shortness of breath. Cardiovascular: Negative for chest pain. Gastrointestinal: Negative for abdominal pain, constipation, diarrhea, nausea and vomiting. Endocrine: Negative. Genitourinary: Negative for difficulty urinating and dysuria. Musculoskeletal: Negative for back pain. Skin: Negative for rash. Neurological: Positive for weakness. Negative for dizziness, seizures, syncope, facial asymmetry, light-headedness and headaches. Hematological: Negative. Psychiatric/Behavioral: Negative. Physical Exam BP 130/68 Pulse 86 Temp (Src) 98.1 (Oral) Resp 16 Ht 5' 6 (1.68m) Wt 190 lb (86.2kg) SpO2 100% LMP 03/24/2018 BMI 30.68 kg/(m2). Physical Exam Constitutional: She is oriented to person, place, and time. She appears well-developed and well-nourished. No distress. HENT: Head: Normocephalic and atraumatic. Eyes: Conjunctivae are normal. Neck: Normal range of motion. Cardiovascular: Normal rate, regular rhythm and normal heart sounds. Pulmonary/Chest: Effort normal and breath sounds normal. No respiratory distress. Abdominal: Soft. Bowel sounds are normal. There is no tenderness. Musculoskeletal: Normal range of motion. Neurological: She is alert and oriented to person, place, and time. No cranial nerve deficit. Coordination normal. Skin: Skin is warm and dry. Psychiatric: She has a normal mood and affect. Nursing note and vitals reviewed. Diagnostic Testing ED Labs Ordered and Reviewed CBC + DIFF - Abnormal; Notable for the following: Result Value Ref Range WBC 11.56 (*) 3.70 - 11.00 k/uL Abs Neut (ANC) 9.02 (*) 1.45 - 7.50 k/uL All other components within normal limits COMP METABOLIC PANEL - Abnormal; Notable for the following: Glucose 100 (*) 74 - 99 mg/dL Potassium 3.6 (*) 3.7 - 5.1 mmol/L All other components within normal limits TSH BLD MAGNESIUM BLD Procedures ED Course / Clinical Impression Clinical Impressions as of Apr 03 1536 Generalized weakness MDM / Disposition / Plan Patient presents to the ED for continued episodes of generalized weakness mostly to her extremities bilaterally. She's been evaluated a few times for this. Normal workup so far. I reviewed her workup at [place] yesterday which was unremarkable. She talked to Dr. Frank today who told her to come to the ED for a full workup. We performed a CT scan which was normal. I completed some further labs which were unremarkable. Explain that we are most likely not going to find the cause of her generalized weakness in the ED unless it is something that she would need to be admitted for life-threatening at this time it does not appear to be that way. I do however feel she should follow-up with neurology and/or rheumatology. She is given follow-up with these specialties. The patient is not necessarily happy that she does not have any answers but understands .She will return for worsening The patient was DISCHARGED: Counseled patient and family regarding lab results AND radiology results AND suspected diagnosis AND need for follow-up. Discharged home with verbal and written instructions. They were instructed to return as needed for persistent or worsening symptoms or any new concerns. Condition at time of disposition: stable SIGNATURE: ALDO Mcneill ([place]) 04/03/18 1539 CBC AND DIFFERENTIAL Collected: 04/03/2018 Status: F Source: [place] 2:50 PM [facility] OTHER CAMPUS REPOSITORY TYPE CODE TESTS RESULT OUT OF REFERENCE UNITS RANGE LAB WBC 3.70-11.00 k/uL WBC High 11.56 LAB RBC 3.90-5.20 m/uL RBC 4.52 LAB HGB 11.5-15.5 g/dL Hemoglobin 14.3 LAB HCT 36.0-46.0 % Hematocrit 40.4 LAB MCV 80.0-100.0 fL MCV 89.4 LAB MCH 26.0-34.0 pG MCH 31.6 LAB MCHC 30.5-36.0 g/dL MCHC 35.4 LAB RDWCV 11.5-15.0 % RDW-CV 12.1 LAB PLTCT 150-400 k/uL Platelet Count 240 LAB MPV 9.0-12.7 fL MPV 10.8 LAB ANEUT % Neut% 78.0 LAB AANEUT 1.45-7.50 k/uL Abs Neut High 9.02 LAB ALYMP % Lymph% 16.5 LAB AALYMP 1.00-4.00 k/uL Abs Lymph 1.91 LAB AMONO % Pickett% 4.9 LAB AAMONO <0.87 k/uL Abs Pickett 0.57 LAB AEOS % Eosin% 0.3 LAB AAEOS <0.46 k/uL Abs Eosin 0.03 LAB ABASO % Baso% 0.3 LAB AABASO <0.11 k/uL Abs Baso 0.03 Performed By: #### CBCDIF, CMP, MG1 #### [facility] [address] [place] [address] COMP METABOLIC PANEL Collected: 04/03/2018 Status: F Source: [place] 2:50 PM CL[facility] OTHER CAMPUS REPOSITORY TYPE CODE TESTS RESULT OUT OF REFERENCE UNITS RANGE LAB TP 6.3-8.0 g/dL Protein, Total 7.8 LAB ALB 3.9-4.9 g/dL Albumin 4.6 LAB CA 8.5-10.2 mg/dL Calcium, Total 9.3 LAB TBIL 0.2-1.3 mg/dL Bilirubin, Total 0.5 LAB ALKP 34-123 U/L Alkaline Phosphatase 89 LAB AST 13-35 U/L AST 17 LAB GLU 74-99 mg/dL Glucose High 100 Result Comment: The [place] Diabetes Association (ADA) provides guidance for cutoff values for fasting glucose and random glucose. The ADA defines fasting as no caloric intake for at least 8 hours. Fas ting plasma glucose results between 100 to 125 mg/dL indicate increased risk for diabetes (prediabetes). Fasting plasma glucose results greater than or equal to 126 mg/dL meet the criteria for diagnosis of diabetes. In the absence of unequivocal hyperglycemia, results should be confirmed by repeat testing. In a patient with classic symptoms of hyperglycemia or hyperglycemic crisis, random plasma glucose results greater than or equal to 200 mg/dL meet the criteria for diagnosis of diabetes. Reference: Standards of Medical Care in Diabetes 2016, [place] Diabetes Association. Diabetes Care. 2016.39(Suppl 1). LAB BUN 7-21 mg/dL BUN 8 LAB CRET 0.58-0.96 mg/dL Creatinine 0.58 LAB NA 136-144 mmol/L Sodium 139 LAB K 3.7-5.1 mmol/L Potassium Low 3.6 LAB CL 97-105 mmol/L Chloride 100 LAB CO2 22-30 mmol/L CO2 26 LAB AGAP 9-18 mmol/L Anion Gap 13 LAB ALT 7-38 U/L ALT 25 LAB GFRAA eGFR- Amer. >60 LAB GFRNAA . eGFR-All Other Races >60 Result Comment: eGFR (Estimated GFR) Units of measure: mL/min/1.73 meters squared eGFR is derived from the reexpressed MDRD Study equation using the following parameters: serum creatinine, age, gender and race. The creatinine assay has been calibrated to be traceable to IDMS. An eGFR <60 mL/min/1.73m2 for >3 months is consistent with chronic kidney disease. Refer to KDOQI guidelines for clinical interpretation. In patients with unstable renal function, e.g. those with acute kidney injury, the eGFR may not accurately reflect actual GFR. Performed By: #### CBCDIF, CMP, MG1 #### [facility] [address] [place] [address] MAGNESIUM Collected: 04/03/2018 Status: F Source: [place] 2:50 PM CLIN[facility] OTHER CAMPUS REPOSITORY TYPE CODE TESTS RESULT OUT OF REFERENCE UNITS RANGE LAB MG 1.7-2.3 mg/dL Magnesium 2.1 Performed By: #### CBCDIF, CMP, MG1 #### [facility] [address] [place] [address] TSH Collected: 04/03/2018 Status: F Source: [place] 2:50 PM [facility] OTHER CAMPUS REPOSITORY TYPE CODE TESTS RESULT OUT OF RANGE REFERENCE UNITS LAB TSH 0.400-5.500 uU/mL TSH 1.150 Result Comment: If the patient is , TSH reference range varies by gestational period: First Trimester 0.100-2.500 uU/mL Second Trimester 0.200-3.000 uU/mL Third Trimester 0.300-3.000 uU/mL References: 1. Bacon, Dejan M, Rickie BURNHAM, et al. Management of Thyroid Dysfunction during and : An Endocrine Society Clinical Practice Guideline. J Clin Endocrinol Metab, 2012:97:0604-8625. 2. Wes TELLEZ. Overview of thyroid disease in . UpToDate. 2016. Accessed on December 10, 2015. Performed By: #### TSH #### [facility] [address] [phone] EKG Observed: 04/03/2018 Status: F Source: [place] 2:[address] [facility] REPOSITORY NAME : RACHEL LOOMIS PID : [id number] : 1985 Gender : Female Race : ORD : [id number] Procedure Date : Apr 03 2018 14:49:12 Edit Date : Apr 03 2018 17:13:42 Diagnosis:NORMAL SINUS RHYTHM NORMAL ECG NO PREVIOUS ECGS AVAILABLE agree 1500 Confirmed by DO FARMER MICHELLE ([id number]), photographic editor AUGUSTINE STOUT ([id number]) on 04/03/2018 5:13:37 PM Ventricular Rate : 88 BPM Atrial Rate : 88 BPM P-R Interval : 134 ms QRS Duration : 92 ms Q-T Interval : 390 ms QTC Calculation(Bezet) : 471 ms P [place] : 37 degrees R [place] : 17 degrees T [place] : 3 degrees Test Reason : Weakness Location : 1 : ER 12 Overread By : DO FARMER MICHELLE Edited By : AUGUSTINE STOUT Referred By : , Acquired by : FERMIN CARRERA BRAIN WO IVCON Observed: 04/03/2018 Status: F Source: [place] 2:46 PM [facility] OTHER [place] REPOSITORY * * *Final Report* * * DATE OF EXAM: Apr 03 2018 2:46PM [facility] 0504 - CT BRAIN WO IVCON / PROCEDURE REASON: Muscle weakness (generalized) * * * * Physician Interpretation * * * * EXAMINATION: CT BRAIN WO IVCON CLINICAL HISTORY: Left-sided weakness arm and leg TECHNIQUE: Serial axial images without IV contrast were obtained from the vertex to the foramen magnum. MQ: [id number]_[id number] CT Dose-Length Product (DLP): 637 mGy*cm CT Dose Reduction Employed: No dose reduction techniques were required COMPARISON: 11/21/2010 RESULT: Post-operative change: None. Acute change: No evidence of an acute infarct or other acute parenchymal process. Hemorrhage: No evidence of acute intracranial hemorrhage. Mass Lesion / Mass Effect: There is no evidence of an intracranial mass or extraaxial fluid collection. No significant mass effect. Chronic change: None apparent. Parenchyma: There is no significant volume loss. The brain parenchyma is otherwise within normal limits for age. Ventricles: The ventricles are within normal limits of size and configuration for age. Paranasal sinuses and skull base: Mild mucosal thickening is present in the ethmoid sinuses bilaterally. The skull base and imaged soft tissues are unremarkable. IMPRESSION: No acute intracranial process is identified. Orbitread Operator: SILVANO Transcribe Date/Time: Apr 03 2018 2:49P Dictated by : BRITNEY MAC MD This examination was interpreted and the report reviewed and electronically signed by: BRITNEY MAC MD on Apr 03 2018 3:05PM EST [id number] ED NOTE Observed: 04/03/2018 Status: COMPLETED Source: [place] 2:12 PM CLIN[facility] OTHER CAMPUS REPOSITORY HNO ID: [id number] Author: Doris (Rn) SMITHA Raymond Service: (none) Author Type: Registered Nurse Type: ED Notes Filed: 04/03/2018 2:13 PM Note Text: Patient advised by Dr Frank to be evaluated for arm and leg weakness and coolness of extremities. OFFICE VISIT Observed: 04/03/2018 Status: F Source: [place] 1:58 PM [facility] [place] [facility] [address] [place] [address] OFFICE VISIT Date of Service: 04/02/18 MR#: [id number] Acct: [id number] Name: EBONIERACHEL PATLE Rep #: [id number] : 1985 Provider: HÉCTOR Frank Age/Sex: 32/F Location: [facility] Status: Signed Intake Vital Signs04/02/18 Height 5 ft 6 in 04/02/18 Weight: 190 lb Intake Visit Reasons: Anxiety Allergies acetaminophen [From Vicodin] Adverse Reaction (Intermediate, Verified 02/05/18 18:05) Nausea hydrocodone [From Vicodin] Adverse Reaction (Intermediate, Verified 02/05/18 18:05) Nausea Medications amoxicillin 875 mg-potassium clavulanate 125 mg tablet 1 tab PO BID #20 tab 02/05/18 [Rx Confirmed 02/05/18] lidocaine 2 % mucosal jelly 1 applic TOPICAL BID-QID PRN #60 ml 02/05/18 [Rx Confirmed 02/05/18] lorazepam 0.5 mg tablet 0.5 mg PO BID PRN #60 tab 02/05/18 [Rx Confirmed 02/05/18] meclizine 12.5 mg tablet 12.5 mg PO TID PRN 02/05/18 [History Confirmed 02/05/18] multivitamin,ia-dswg-obwbogta tablet 1 tab PO QDAY 02/05/18 [History Confirmed 02/05/18] sumatriptan 50 mg tablet 50 mg PO ONCE PRN 02/05/18 [History Confirmed 02/05/18] vit Bcplx C-vit E-folic acid-roberth-Zn 35 unit-5.5 mg-70 mcg- 20 mg tablet tab PO 02/05/18 [History Confirmed 02/05/18] levothyroxine 112 mcg tablet 112 mcg PO DAILY #30 tab 03/16/18 [Rx] citalopram 10 mg tablet 10 mg PO DAILY #30 tab 04/02/18 [Rx Confirmed 04/02/18] PFSH Medical History Abnormal Pap smear of vagina (Acute) DVT leg superficial thrombophlebitis (Acute) [place] teeth removed (Acute) Surgical History H/O thyroidectomy (Acute) History of tonsillectomy (Acute) Family History Other Colon cancer Diabetes Fatty liver Myocardial infarction Ovarian cancer Prostate cancer Uterine cancer Social History Smoking Status: Never smoker alcohol intake: current substance use type: does not use HPI HPI (General) HPI HPI: RACHEL LOOMIS, is a 32 F who presents to the office today for started Sunday morning after having 1 Marguerita at a bar on the way home [facility], felt rubbery and she thought she was going to pass out and went to a ED there.They thought she was having a anxiety attack then it happened yesterday cleaning her house, and got out of bed and felt rubbery again and felt like she was going to pass out. Went to ED at [place] and they did labs and gave her benadryl and zofran . Has not been to work since Mon . She states that she does not have a hard time breathing but has blurred vision and muscles weak, they get worse with activity. ROS Eyes Eyes: Positive for blurry vision Musc Musculoskeletal: Positive for muscle weakness and numbness (feet and legs) Neuro Neurology: Positive for numbness (feet and legs) Exam Const Constitutional: Yes cooperative, Yes healthy appearing Orientation: Yes alert, awake and oriented x3 HENMT Head: Yes normocephalic Ear: Yes hearing grossly normal bilaterally Neck Neck: normal visual inspection Thyroid: thyroid normal Eyes General: Yes appearance normal, both eyes and all related structures Chest Chest palpation AND inspection: Yes normal inspection of the chest Resp Effort AND Inspection: Yes normal respiratory effort Auscultation: Yes clear to auscultation bilaterally Cardio Palpitation: Yes normal PMI Rate: Yes regular rate Rhythm: Yes regular rhythm GI Inspection: Yes normal to inspection Auscultation: Yes normal bowel sounds Musc Cervical Spine: Yes cervical ROM normal Thoracic/Lumbar Spine: Yes thoracic and lumbar spine normal to inspection Skin General: no rashes or lesions noted Lesions: Yes no lesions Extrem General: Yes normal to inspection Neuro General: Yes alert and oriented x3 Psych Appearance: Positive grossly normal Mood: Positive congruent mood Affect: Positive normal affect Assessment AND Plan Problems 1. Anxiety disorder, unspecified type F41.9 2. Hypothyroidism (acquired) E03.9 3. Acute muscle weakness M62.81 Medications New: Coding Level of Care Code Off vis,est,level 3 Diagnoses Anxiety disorder, unspecified type F41.9 Anxiety disorder type: unspecified anxiety disorder Hypothyroidism (acquired) E03.9 Acute muscle weakness M62.81 04/03/18 1358 <Electronically signed by My MCKINLEY> Date My MCKINLEY CC: ED PROV NOTE Observed: 04/01/2018 Status: COMPLETED Source: [facility] 7[facility]19 PM [facility] RE[facility] HNO ID: [id number] Author: Robin Caruso MD Service: Emergency Medicine Author Type: Physician Type: ED Provider Notes Filed: 04/01/2018 11:25 PM Note Text: ED Provider Note Patient Name: Rachel Loomis SERVICE DATE: 04/01/18 History Patient presents with: Dizziness Weakness Pt presents with her mother for dizziness, nausea, and generalized weakness with myalgias, pt states feels like her previous anxiety attacks however did not improved with ativan today Pt had a jay at a wedding over the weekend and felt the same and went to an ED in [place] Anxiety Severity: Mild Most recent episode: Today Episode history: Single Timing: Intermittent Progression: Waxing and waning Context: alcohol use Context: not head injury and not recent illness Associated symptoms: light-headedness, nausea and weakness Associated symptoms: no abdominal pain, no depression, no fever, no suicidal behavior and no vomiting PAST MEDICAL HISTORY Diagnosis Date - Anxiety 02/04/2010 - Depression 02/04/2010 - Thyroid disease PAST SURGICAL HISTORY Procedure Laterality Date - THYROID SURGERY HX r partial - THYROIDECTOMY 2013 - TONSILLECTOMY HX No family history on file. Social History Social History Main Topics - Smoking status: Never Smoker - Smokeless tobacco: Never Used - Alcohol use Yes Comment: rare - Drug use: No - Sexual activity: Yes Partners: Male ALLERGIES Allergen Reactions - Vicodin [Hydrocodon* GI Upset Review of Systems Constitutional: Positive for fatigue. Negative for fever. HENT: Negative. Eyes: Negative. Respiratory: Negative for shortness of breath and wheezing. Cardiovascular: Negative for chest pain. Gastrointestinal: Positive for nausea. Negative for abdominal pain and vomiting. Genitourinary: Negative for dysuria and vaginal bleeding. Musculoskeletal: Negative. Neurological: Positive for dizziness, weakness and light-headedness. Psychiatric/Behavioral: The patient is nervous/anxious. All other systems reviewed and are negative. Physical Exam BP 135/74 Pulse 90 Temp (Src) 99 (Temporal Artery) Resp 18 Ht 5' 6 (1.68m) Wt 193 lb (87.5kg) SpO2 99% BMI 31.17 kg/(m2). Physical Exam Constitutional: She is oriented to person, place, and time. She appears well-developed and well-nourished. HENT: Head: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 Systems HENT: Positive for congestion. Negative for hearing loss. Eyes: Negative for photophobia. Respiratory: Negative for cough. Musculoskeletal: Negative for back pain, myalgias, neck pain and neck stiffness. Neurological: Positive for headaches. Negative for dizziness, seizures and numbness. All other systems reviewed and are negative. Physical Exam BP 113/61 Pulse 82 Temp (Src) 97.5 (Temporal Artery) Resp 16 Ht 5' 6 (1.68m) Wt 198 lb (89.8kg) SpO2 97% LMP 11/21/2017 BMI 31.97 kg/(m2). Physical Exam Constitutional: She is oriented to person, place, and time. She appears well-developed and well-nourished. HENT: Head: Normocephalic and atraumatic. Right Ear: External ear normal. Left Ear: External ear normal. Mild erythema, and bogginess to left turbinate, patent No facial or sinus tenderness, no facial swelling Eyes: EOM are normal. Pupils are equal, round, and reactive to light. Right eye exhibits no discharge. Left eye exhibits no discharge. Neck: Normal range of motion. No JVD present. No tracheal deviation present. No thyromegaly present. Pulmonary/Chest: No stridor. No respiratory distress. Lymphadenopathy: She has no cervical adenopathy. Neurological: She is alert and oriented to person, place, and time. No cranial nerve deficit. Coordination normal. Answers questions appropriately Cranial nerves intact Equal upper and lower extremity muscle strength and sensation Stable gait Skin: No rash noted. Psychiatric: She has a normal mood and affect. Her behavior is normal. Judgment and thought content normal. Nursing note and vitals reviewed. Diagnostic Testing ED Labs Ordered and Reviewed - No data to display Procedures Medical Decision Making MDM 32 year old female pt with reported hx of vertigo presents with headache off/on up to one month in duration. Pt concerned as not improving over the previous month. Took meclizine last night with noted relief of dizziness. Pt presents concern over this headache in one month duration without improvement. Pt has already been seen and treated x2. Initial evaluation at [facility] and treated for sinusitis for 10 days with augmentin, with only slight improvement in symptoms. Yesterday saw PCP, and Dx with migraines, and given maxalt however has not filled Rx yet. Today morning pt concerned because symptoms still persistent. Pt with stable vitals, no fever, and a normal neurologic exam. Pt declined any medications as well. There is overall a low likelihood of serious intracranial pathology in pt based on her presentation, however her symptoms have been present times one month, and this is her 3 evaluation for the same, and pt is requesting a CT scan. 8:[address] scan pending. If negative plan for DC home with PCP f/u. ED Course / Clinical Impression Clinical Impressions as of Dec 13 815 Headache disorder Vertigo Plan SIGNATURE: MD Robin Dumont MD 12/12/17804 Robin Caruso MD 12/12/1717 ED NOTE Observed: 12/12/2017 Status: COMPLETED Source: [place] 7:39 AM [facility] REPOSITORY HNO ID: [id number] Author: Allie (Rn) SMITHA Santana Service: Emergency Medicine Author Type: Registered Nurse Type: ED Notes Filed: 12/12/2017 7:40 AM Note Text: Patient conversing normally laying in bed interacting with registration. Patient with regular and easy respirations. VL VENOUS DUPLEX US Observed: 07/20/2017 Status: F Source: [employer] LOWER EXT LEFT 4:48 PM SYSTEM REPOSITORY Patient Name: RACHEL LOOMIS Ultrasound Exam Date/Time 07/20/2017 17:20:00 EST Exam VL Venous Duplex US Lower Ext Left Ordering Physician RENEA FRANK DORA L Accession Number [id number] CPT4 Codes 11869 () Reason For Exam LT leg pain Report [facility] --- Left Lower Extremity Venous Duplex Report Patient Name: Rachel Loomis : 1985 Study Date: 07/20/2017 M (31yrs) Age: 31 Account: [id number] Gender: F Loc: BP: Ordering: My Frank Technologist: Ordering Physician: My Frank Oil Spot Washer: Interpreting Physician: Alicia Marroquin MD --- Location: [facility] --- INDICATIONS: Pain in limb - left leg. --- CONCLUSIONS 1. This is a normal study. --- IMPRESSIONS: - The superficial and deep systems of the left lower extremity appear to be free of thrombus. - This is a normal study. --- HISTORY: Left lower extremity pain - knee through distal calf x 2 weeks. H/O superficial vein thrombosis 08/2015. Risk factors: Patient currently taking hormone based control x 7 years. --- STUDY DATA: Left lower extremity venous duplex evaluation. Birthdate: Patient birthdate: 1985. Age: Patient is 31 yr old. Sex: Gender: female. Ethnicity: Ethnicity: white. Doppler flow study including spectral analysis, color and merrill scale imaging. Patient status: Outpatient. Procedure: A vascular evaluation was performed. The images were obtained using a [employer] Aplio vascular ultrasound machine. --- VENOUS FLOW AND IMAGING: + +-------+ --+ !Location !Overall!Flow properties ! + +-------+ --+ !Left common femoral !Patent !Normal phasicity; spontaneous; normal ! ! ! !augmentation; compressible ! + +-------+ --+ !Left saphenofemoral junction!Patent !Compressible ! + +-------+ --+ !Left profunda femoral !Patent !Normal phasicity; spontaneous; normal ! ! ! !augmentation ! + +-------+ --+ !L femoral proximal !Patent !Compressible ! + +-------+ --+ !L femoral mid !Patent !Normal phasicity; spontaneous; normal ! ! ! !augmentation; compressible ! + +-------+ --+ !L femoral distal !Patent !Compressible ! + +-------+ --+ !Left popliteal !Patent !Normal phasicity; spontaneous; normal ! ! ! !augmentation; compressible ! + +-------+ --+ !Left gastrocnemius !Patent !Compressible ! + +-------+ --+ !Left posterior tibial !Patent !Compressible ! + +-------+ --+ !Left peroneal !Patent !Compressible ! + +-------+ --+ !Left soleal !Patent !Compressible ! + +-------+ --+ !Left greater saphenous !Patent !Compressible ! + +-------+ --+ !Left lesser saphenous !Patent !Compressible ! + +-------+ --+ !Right common femoral !Patent !Normal phasicity; spontaneous; normal ! ! ! !augmentation; compressible ! + +-------+ --+ Electronically signed by: Alicia Marroquin MD [id number] Final Dictated: 07/23/2017 8:58 am Dictating Physician: ALICIA MARROQUIN Signed Date and Time: 07/20/2017 5:25 pm Signed by: ALICIA MARROQUIN ALLERGIES ALLERGIES DATE TYPE / CODE NAME / CODE REACTION SEVERITY SOURCE 07/02/2018 Drug hydrocodone/ Nausea [facility] Allergy/4160 [id number](R Hospital 83360(SNOMED XNORM) Repository CT) 07/02/2018 Drug acetaminophe Nausea [facility] Allergy/4160 n/[id number] Hospital 59977(SNOMED (RXNORM) Repository CT) 02/10/2016 DRUG/[id number] HYDROCODONE- GI UPSET [facility] 03(SNOMED ACETAMINOPHE [facility] CT) N Repository ENCOUNTERS ENCOUNTERS ADMIT/DISCHARGE ACCOUNT NUMBER ADMITTING ENCOUNTER LOCATION SOURCE CLASS 07/02/2018/07/02/19 [id number] Ambulatory BMSBuilding: [place] 19 BMS.[facility] Repository 06/14/2018/06/14/20 [id number] Ambulatory [address] Repository 06/13/2018 [id number] Ambulatory [facility] Repository 06/11/2018 [id number] Ambulatory BMSBuilding: [place] BMS.CF.[facility] Repository 06/11/2018 [id number] Ambulatory BMSBuilding: [place] [facility] Repository 06/11/2018 [id number] Ambulatory [facility] ding:[facility] Repository 05/29/2018/05/29/20 [id number] Ambulatory BMSBuilding: [place] 18 BMS.[facility] Repository 05/23/2018/05/23/20 [id number] Ambulatory [address] Repository 05/23/2018/05/23/20 [id number] Ambulatory [address] Repository 05/15/2018 [id number] Ambulatory [facility] Repository 05/10/2018 [id number] Ambulatory [facility] ding:[facility] Repository 04/30/2018/05/01/20 [id number] Ambulatory [address] Repository 04/29/2018 [id number] Ambulatory [facility] ding:[facility] Repository 04/20/2018/04/20/20 [id number] Emergency [address] Repository 04/08/2018 [id number] Ambulatory [facility] ding:[facility] Repository 04/05/2018/04/05/20 [id number] Emergency [address] Repository 04/04/2018 [id number] Ambulatory [facility] ding:[facility] Repository 04/03/2018/04/03/20 [id number] Emergency [address] Repository 03/31/2018/03/31/20 [id number] Emergency [address] ding:EDRoom: Repository ED DBed: ED D 03/15/2018 [id number] Ambulatory [facility] ding:[facility] Repository 03/13/2018 [id number] Ambulatory [place] Vijay [facility] ding:[facility] Repository 07/20/2017 [id number] [facility] Repository PAYERS PAYERS ENCOUNTER GUARANTOR PAYER SUBSCRIBER SOURCE 07/02/2018 RACHEL Santillan Primary RACHEL [id number] Insurance:UNITED TH HOLZMANDOB: Community [address] C[address] [id number], [place] [address]Mbk: Number: Repository () [id number] Date:5954-03-35FP [address]KRX, [place] [address]KN: 07/02/2018 Secondary NOT GIVENUNK [place] Insurance:SELF PAY [facility] Number: Effective Repository Date:2018-07-02 06/11/2018 RACHEL M Primary RACHEL Linares [id number] N Insurance:UNITED TH HOLZMANDOB: Community [address] C[address] [id number] [id number], [place] [address]Oab: Number: Repository () [id number] Date:4177-73-10SX [address]UYBJIFZ, [place] [address]ZK: 06/11/2018 Secondary NOT GIVENUNK [place] Insurance:SELF PAY [facility] Number: Effective Repository Date:2018-06-11 06/11/2018 RACHEL M Primary RACHEL [address]UR[address]ZMAN[address]18 N Insurance:[facility] TH [facility]: Community [address] C[address] [id number] [id number], [place] [address]Prt: Number: Repository () [id number] Date:6251-09-79ED [address]PKAUNBM, [place] [address]NH: 06/11/2018 Secondary NOT GIVENUNK [place] Insurance:SELF PAY [facility] Number: Effective Repository Date:2018-06-11 06/11/2018 RACHEL Santillan Primary RACHEL [address] N Insurance:UNITED HLTH HOLZMANDOB: Community [address] [facility] [id number] [id number], [place] [address]Cfc: Number: Repository () [id number] Date:8086-60-88HG [address]NPMCALU, [place] [address]FZ: 06/11/2018 Secondary NOT GIVENUNK [place] Insurance:SELF PAY [facility] Number: Effective Repository Date:2018-05-29 05/29/2018 RACHEL Santillan Primary RACHEL [address] N Insurance:UNITED HLTH HOLZMANDOB: Community [address] [id number] [id number], [place] [address]Cji: Number: Repository () [id number] Date:0894-03-68WL [address]PTFKYHH, [place] [address]RC: 05/29/2018 Secondary NOT GIVENUNK [place] Insurance:SELF PAY [facility] Number: Effective Repository Date:2018-05-29 05/10/2018 RACHEL Santillan Primary RACHEL [address]ZMAN[address]18 N Insurance:UNITED HLTH HOLZMANDOB: Community [address] [facility] [id number], [place] [address]Ofo: Number: Repository () [id number] Date:3354-52-08RB [address]SNJSKNB, [place] [address]KZ: 05/10/2018 Secondary NOT GIVENUNK [place] Insurance:SELF PAY [facility] Number: Effective Repository Date:2018-05-10 04/29/2018 RACHEL Santillan Primary RACHEL [address]ZMAN[address] N Insurance:UNITED HLTH HOLZMANDOB: Community [address] [id number] [id number], [place] [address]Dqp: Number: Repository () [id number] Date:7937-95-89WN [address]IGURBFL, [place] [address]YS: 04/29/2018 Secondary NOT GIVENUNK [place] Insurance:SELF PAY [facility] Number: Effective Repository Date:2018-04-29 04/08/2018 RACHEL Santillan Primary RACHEL [address]ZMAN[address]18 N Insurance:UNITED HLTH HOLZMANDOB: [facility] CARE [id number], [place] [address]Foo: Number: Repository () [id number] Date:5585-28-99CD [address]WTKIWTL, [place] [address]SW: 04/08/2018 Secondary NOT GIVENUNK [place] Insurance:SELF PAY [facility] Number: Effective Repository Date:2018-04-08 04/04/2018 RACHEL M Primary RACHEL CHRU[address]ZMAN[address]18 N Insurance:UNITED HLTH HOLZMANDOB: [facility] CARE [id number] [id number], [place] [address]Tnw: Number: Repository () [id number] Date:4349-53-05BO [address]GWEDVYZ, [place] [address]RZ: 04/04/2018 Secondary NOT GIVENUNK [place] Insurance:SELF PAY [facility] Number: Effective Repository Date:2018-04-04 03/31/2018 RACHEL [place] Primary RACHEL Coello HOLMandyMANDOB: Insurance:UNITED HOLZMANDOB: [facility] [id number] N HEALTHCARE CHOICE [id number] -[address]Polic Number: [address] [place], [place] [address]Zsv: [id number] [facility], [id number] () Date:5167-63-54Fadz [place] [address] Name:DANISH FRANK [address], [place] [address]IL: 03/15/2018 RACHEL [id number] Primary [address]HEL [address] Insurance:[facility] [place] [place] [address]Eei: CARE [id number] () Number: Repository [id number] Date:3422-62-09SS [address]QSGRBTK, [place] [address]QQ: 03/15/2018 Secondary NOT GIVENUNK [place] Insurance:SELF PAY [facility] Number: Effective Repository Date:2018-03-14 03/13/2018 RACHEL [id number] Primary RACHEL L[address]res [address] Insurance:[facility]: [facility] [place] [address]Dog: CARE [id number] Hospital () Number: Repository [id number] Date:6096-13-25JV [address]IZITDND, [place] [address]AA: 03/13/2018 Secondary NOT GIVENUNK [place] Insurance:SELF PAY [facility] Number: Effective Repository Date:2018-03-13 07/20/2017 Rachel Santillan Primary [facility] [id number] HealthcarePolicy [id number] [address]ository [address] Number: Effective MEET [place] [address]Hwi: Date: ()
== END ==
PROVIDERS: Family Provider Nurse Practitioner; PCP Nurse Practitioner; Referring Provider Internal Medicine Cardiovascular Disease; Visit Provider Internal Medicine Cardiovascular Disease
DX: R00.2 Palpitations (principal)
CPT/HCPCS: 93225; 93226; 93306

== ENCOUNTER → 2018-09-05 22:15 | Outpatient (CLI) | payer OTHER, SELFPAY ==
[2018-08-20 11:56] VITALS: BMI 25.2
[2018-09-05 22:51] LABS: Thyroid Stim Hormone (TSH) 0.76 uIU/mL (0.358-3.74)
== END ==
PROVIDERS: Family Provider Nurse Practitioner; PCP Nurse Practitioner; Referring Provider Nurse Practitioner; Visit Provider Nurse Practitioner
DX: E03.9 Hypothyroidism, unspecified (principal)
CPT/HCPCS: 84443